=== PATIENT | female | born 1940 | race Caucasian/White ===

== ENCOUNTER → 2016-05-09 | Outpatient (CLI) | payer MEDICARE ==
--- NOTE | 2016-05-09 15:45 | BD ---
EXAMINATION TYPE: MG DEXA axial skeleton. DATE OF EXAM: 05/09/2016 2:15 PM COMPARISON: NONE CLINICAL HISTORY: Height: 60.5 Weight: 145 FRAX RISK QUESTIONS: Alcohol (3 or more units per day): no Family History (Parent hip fracture): no Glucocorticoids (More than 3mos): no (Ex: prednisone, prednisolone, methylprednisolone, dexamethasone, and hydrocortisone). History of Fracture in Adulthood: no Secondary Osteoporosis: 1. Type 1 Diabetes: no 2. Hyperthyroidism: no 3. Menopause before 45: no 4. Malnutrition: no 5. Chronic liver disease: no Rheumatoid Arthritis: no Current Tobacco Use: yes RISK FACTORS HISTORY OF: History of Fracture: no Family History of Osteoporosis: unsure Drink Alcohol: socially, occasionally Active: yes Diet low in dairy products/other sources of calcium: no Postmenopausal woman: yes Take estrogen and/or progesterone medications: no Lost more than 2 inches in height since high school: yes Frequent falls: no Poor Health: no Hyperparathyroidism: no Adrenal Insufficiency: no MEDICATIONS: Prednisone or other steroids: no Thyroid Medications: no Osteoporosis Medications: no Additional Medications: blood pressure meds, fish oil & vitamin EXAM MEASUREMENTS: Bone mineral densitometry was performed using the [employer] System. Bone mineral density as measured about the Lumbar spine is: ----- L1-L4(G/cm2): 1.247 T Score Values are as follows: ----- L2: 0.3 ----- L3: -1.3 ----- L4: 1.2 ----- L1-L4: 0.6 Bone mineral density has: Decreased -4.4% since study of: 10/14/2013 Bone mineral density about the R hip (g/cm2): 0.837 Bone mineral density about the L hip (g/cm2): 0.798 T Score values are as follows: -----R Neck: -1.4 -----L Neck: -1.7 -----R Intertrochanter: -2.4 -----L Intertrochanter: -1.6 Bone mineral density has: Decreased -3.3% since study of: 10/14/2013 IMPRESSION Osteopenia (T Score between -2.5 and -1 as noted by T score values There is slightly increased risk of fracture and the patient may be considered for treatment. Re-Screen 1-2 years. NOTE: T-SCORE=SD OF THE YOUNG ADULT MEAN.
--- NOTE | 2016-05-10 08:12 | MM ---
Reason for exam: screening (asymptomatic). Last mammogram was performed 1 year and 7 months ago. History: Patient is postmenopausal and has history of other cancer at age 70. Family history of breast cancer in paternal cousin. Physical Findings: A clinical breast exam by your physician is recommended on an annual basis and results should be correlated with mammographic findings. MG 3D Screening Mammo W/Cad Bilateral CC and MLO view(s) were taken. Prior study comparison: October 15, 2014, bilateral MG screening mammo w CAD. October 14, 2013, bilateral MG screening mammo w CAD. There are scattered fibroglandular densities. There is no discrete abnormality. No significant changes when compared with prior studies. ASSESSMENT: Negative, BI-RAD 1 RECOMMENDATION: Routine screening mammogram of both breasts in 1 year.
== END | disposition home or self-care (01) ==
LOC: RADMAMWWP 12:55
PROVIDERS: ATTEND Family Medicine
DX: Z12.31 Encounter for screening mammogram for malignant neoplasm of breast (principal); M85.80 Other specified disorders of bone density and structure, unspecified site
CPT/HCPCS: 77080; 77063; G0202

== ENCOUNTER → 2017-09-07 | Outpatient (CLI) | payer MEDICARE ==
--- NOTE | 2017-09-07 12:36 | XR ---
Lumbar spine HISTORY: Chronic back pain 3 views of the lumbar spine The lumbar vertebral bodies show decreased mineralization. There is a marked levoscoliosis centered a t L3. Sclerosis present in the posterior elements is compatible with facet arthropathy. There is loss of disc height at the intervertebral levels. Vacuum phenomenon also present at the intervertebral le vels, there is multilevel spondylosis. There may be some mild loss of vertebral body height at L2, L3 . There are atherosclerotic vascular calcifications present. IMPRESSION: Degenerative disc disease, scoliosis, facet arthropathy.
--- NOTE | 2017-09-10 10:20 | MM ---
Reason for exam: screening (asymptomatic). Last mammogram was performed 1 year and 4 months ago. History: Patient is postmenopausal and has history of other cancer at age 70. Family history of breast cancer in paternal cousin. Physical Findings: A clinical breast exam by your physician is recommended on an annual basis and results should be correlated with mammographic findings. MG 3D Screening Mammo W/Cad Bilateral CC and MLO view(s) were taken. Prior study comparison: May 09, 2016, bilateral MG 3d screening mammo w/cad. October 15, 2014, bilateral MG screening mammo w CAD. The breast tissue is heterogeneously dense. This may lower the sensitivity of mammography. Benign appearing bilateral calcifications. No suspicious abnormality. No significant changes when compared with prior studies. ASSESSMENT: Benign, BI-RAD 2 RECOMMENDATION: Routine screening mammogram of both breasts in 1 year.
== END | disposition home or self-care (01) ==
LOC: RADMAMWWP 09:05
PROVIDERS: ATTEND Family Medicine
DX: Z12.31 Encounter for screening mammogram for malignant neoplasm of breast (principal); M51.16 Intervertebral disc disorders with radiculopathy, lumbar region; M46.96 Unspecified inflammatory spondylopathy, lumbar region; M41.86 Other forms of scoliosis, lumbar region
CPT/HCPCS: 72100; 77063; 77067

== ENCOUNTER → 2018-09-17 | Outpatient (CLI) | payer MEDICARE ==
--- NOTE | 2018-09-17 09:59 | US ---
EXAMINATION TYPE: US thyroid st tissue head/neck DATE OF EXAM: 09/17/2018 COMPARISON: US 09/10/2015 CLINICAL HISTORY: R13.10 Dysphagi. Thyroid nodules GLAND SIZE: Right Lobe: 5.0 x 2.9 x 2.8 cm Overall Parenchyma: heterogenous Left Lobe: 4.8 x 1.4 x 1.3 cm Overall Parenchyma: heterogeneous Isthmus Thickness: 0.7 cm NODULES RIGHT: # of nodules measured on right: 3 1. 3.0 X 3.0 x 2.4 cm hypoechoic solid nodule at the mid pole with well-defined margins; present wi th microcalcifications. This nodule is wider than tall and shows intranodular vascularity. Prior size: 3.0 x 2.9 x 2.3 cm 2. 0.9 X 0.8 x 0.7 cm hypoechoic solid nodule at the mid lateral pole with well-defined margins. Thi s nodule is taller than wide and shows no intranodular vascularity. Prior size #2 was cystic nodule not seen 3. 0.9 X 0.8 x 0.7 cm isoechoic mixed nodule at the upper pole with poorly defined margins; interrup van peripheral calcification. This nodule is wider than tall and shows no intranodular vascularity. Prior size: 0.8 x 0.7 x 0.7 cm LEFT: # of nodules measured on left: 2 largest of multiple 1. 0.8 x 0.7x 0.5 cm hypoechoic mixed nodule at the upper pole with well-defined margins. This nodu le is wider than tall and shows no intranodular vascularity. Prior size: 0.9 x 0.4 x 0.7 cm 2. 0.6 X 0.4 x 0.4 cm hypoechoic, primarilycystic nodule at the lower pole with well-defined margins ; present with microcalcification. This nodule is wide as is tall and shows no intranodular vascular ity. Prior size: 0.7 x 0.3 x 0.7 cm ISTHMUS: # of nodules measured in the isthmus: 2 1. 0.6 X 0.8 x 0.5 cm hypoechoic cystic nodule at the lower pole with well-defined margins. This n odule is wider than tall and shows no intranodular vascularity. no prior simple cyst seen 2. 0.5 X 0.4 x 0.4 cm hypoechoic mixed nodule at the mid pole with well-defined margins. This nodul e is wide as is tall and shows no intranodular vascularity. Prior size: 0.5 x 0.4 x 0.5 cm Bilateral neck scanned: no evidence of lymphadenopathy. IMPRESSION: Continued stability of the dominant right thyroid nodule measuring up to 3.0 cm in an overall multino dular goiter. This nodule was previously biopsied on 04/27/2015. There are 2 new benign-appearing cyst ic nodules.
--- NOTE | 2018-09-17 10:41 | BD ---
EXAMINATION TYPE: Axial Bone Density DATE OF EXAM: 09/17/2018 COMPARISON: 2017 CLINICAL HISTORY: Postmenopausal female. Osteoporosis screening. Height: 61 Weight: 161.0 FRAX RISK QUESTIONS: Alcohol (3 or more units per day): no Family History (Parent hip fracture): no Glucocorticoids (More than 3mos): no (Ex: prednisone, prednisolone, methylprednisolone, dexamethasone, and hydrocortisone). History of Fracture in Adulthood: no Secondary Osteoporosis: 1. Type 1 Diabetes: no 2. Hyperthyroidism: no 3. Menopause before 45: no 4. Malnutrition: no 5. Chronic liver disease: no Rheumatoid Arthritis: yes Current Tobacco Use: no -stopped 8 months ago RISK FACTORS HISTORY OF: Family History of Osteoporosis: no Active: sometimes Diet low in dairy products/other sources of calcium: no Postmenopausal woman: age 53 Lost more than 2 inches in height since high school: yes MEDICATIONS: blood pressure, pain meds as needed, medical marijuana Additional History: EXAM MEASUREMENTS: Bone mineral densitometry was performed using the [employer] System. Bone mineral density as measured about the Lumbar spine is: ----- L1-L4(G/cm2): 1.202 T Score Values are as follows: ----- L2: 0.9 ----- L3: -0.5 ----- L4: -1.4 ----- L1-L4: 0.2 Bone mineral density has: decreased -5.1 % since study of: 05.09.2016 Bone mineral density about the R hip (g/cm2): 0.978 Bone mineral density about the L hip (g/cm2): 0.871 T Score values are as follows: -----R Neck: -0.4 -----L Neck: -1.2 -----R Total: -2.0 -----L Total: -1.4 Bone mineral density has: increased 4.6 % since study of: 05.09.2016 IMPRESSION: Osteopenia (T Score between -2.5 and -1). There is slightly increased risk of fracture and the patient may be considered for treatment. Re-Screen 2-5 years. NOTE: T-SCORE=SD OF THE YOUNG ADULT MEAN.
--- NOTE | 2018-09-18 13:44 | MM ---
Reason for exam: screening (asymptomatic). Last mammogram was performed 1 year ago. History: Patient is postmenopausal and has history of other cancer at age 70. Family history of breast cancer in paternal cousin. Physical Findings: A clinical breast exam by your physician is recommended on an annual basis and results should be correlated with mammographic findings. MG 3D Screening Mammo W/Cad Bilateral CC and MLO view(s) were taken. Prior study comparison: September 07, 2017, bilateral MG 3d screening mammo w/cad. May 09, 2016, bilateral MG 3d screening mammo w/cad. The breast tissue is heterogeneously dense. This may lower the sensitivity of mammography. Finding: There are typically benign calcifications in both breasts. No suspicious abnormality. No significant new finding when compared to prior studies. ASSESSMENT: Benign, BI-RAD 2 RECOMMENDATION: Routine screening mammogram of both breasts in 1 year.
== END | disposition home or self-care (01) ==
LOC: RADMAMWWP 07:49
PROVIDERS: ATTEND Family Medicine
DX: Z12.31 Encounter for screening mammogram for malignant neoplasm of breast (principal); E04.2 Nontoxic multinodular goiter; M85.851 Other specified disorders of bone density and structure, right thigh; M85.852 Other specified disorders of bone density and structure, left thigh; M85.88 Other specified disorders of bone density and structure, other site; Z78.0 Asymptomatic menopausal state
CPT/HCPCS: 76536; 77063; 77067; 77080

== ENCOUNTER → 2018-12-02 | Outpatient (CLI) | payer MEDICARE ==
--- NOTE | 2018-12-02 11:05 | XR ---
EXAMINATION TYPE: XR knee complete bilateral DATE OF EXAM: 12/02/2018 COMPARISON: NONE HISTORY: Pain TECHNIQUE: 3 views are submitted of each knee. FINDINGS: There severe arthropathy of the knee joint bilaterally with hypertrophic spurring. Findings are great er on the left. Arthropathy of the patellofemoral joint and small amount of fluid in the suprapatella r bursa noted bilaterally. Defect involving the articular surface of the lateral femoral condyle on t he right may been the basis of osteochondritis. IMPRESSION: 1. Severe bilateral osteoarthritis. 2. Osteochondritis of the lateral right femoral condyle suggestive. Correlate with MRI.
== END | disposition home or self-care (01) ==
LOC: RADXRYALE 09:46
PROVIDERS: ATTEND Nurse Practitioner Family
DX: M17.0 Bilateral primary osteoarthritis of knee (principal)

== ENCOUNTER → 2018-12-25 | Outpatient (CLI) | payer MEDICARE ==
--- NOTE | 2018-12-25 13:45 | MR ---
EXAMINATION TYPE: MR knee RT wo con DATE OF EXAM: 12/25/2018 COMPARISON: Plain film 12/02/2018 HISTORY: Right knee pain TECHNIQUE: Multiplanar, multisequence imaging of the right knee is performed without IV contrast. FINDINGS: MEDIAL MENISCUS: Abnormal increased intrasubstance signal is present, stellate abnormal signal is pre sent with linear signal extending to the articular surface at the posterior horn level LATERAL MENISCUS: Root anchor of the posterior horn of the lateral meniscus is not seen with certaint y at its expected insertion site consistent with tear CRUCIATE LIGAMENTS: Fibers of the anterior cruciate ligament shows abnormal increased intrasubstance signal, the ligament appears somewhat attenuated and there may be an associated small ganglion cyst p osteriorly COLLATERAL LIGAMENTS: The medial collateral ligament and lateral collateral ligament complex are inta ct and unremarkable. EXTENSOR MECHANISM: Visualized quadriceps and patellar tendons are intact. EFFUSION: Suprapatellar joint effusion is noted. POPLITEAL CYST: Semimembranosus gastrocnemius cyst is present measuring approximately 2 x 1.6 x 4 cm . TRICOMPARTMENT SPACES: Joint space is reduced in the medial lateral compartments. CARTILAGE: Subchondral focus of increased signal in the lateral femoral condyle measures approximatel y 1 cm in greatest dimension, overlying cartilage thought to show some minimal associated abnormal si gnal. 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 BONE MARROW SIGNAL: There is likely reactive marrow signal change involving the lateral femoral condy le and lesser extent proximal aspect of the tibia posteriorly OTHER: Tricompartmental marginal spurring is present. IMPRESSION: Osteoarthritis. Focal subchondral defect correlate with plain film in the lateral femoral condyle and is compatible with fracture, possible osteochondral fracture. There is reactive marrow signal change . Tear of the posterior horn of the lateral meniscus is suspected as described as well as posterior h orn of the medial meniscus. Joint effusion and Wilson's cyst.
== END | disposition home or self-care (01) ==
LOC: RADMRIMAIN 09:41
PROVIDERS: ATTEND Nurse Practitioner Family
DX: M17.11 Unilateral primary osteoarthritis, right knee (principal); M71.21 Synovial cyst of popliteal space [Baker], right knee; M93.261 Osteochondritis dissecans, right knee

== ENCOUNTER → 2019-09-15 | Outpatient (CLI) | payer MEDICARE ==
[2019-09-15 10:29] LABS: HCT 37.9 % (34.0-46.0); HGB 12.2 gm/dL (11.4-16.0); MCHC 32.1 g/dL (31.0-37.0); MCV 93.3 fL (80.0-100.0); Mean Platelet Volume 9.3; Platelet Count 234 k/uL (150-450); RBC 4.06 m/uL (3.80-5.40); RDW 13.6 % (11.5-15.5); WBC 7.5 k/uL (3.8-10.6)
[2019-09-15 10:42] LABS: INR 0.9 (<1.2); Partial Thromboplastin Time 22.5 sec (22.0-30.0); Prothrombin Time 9.6 sec (9.0-12.0)
[2019-09-15 10:43] LABS: Appearance,Urine Cloudy (Clear); Bacteria,Urine Many /hpf; Bilirubin,Urine Negative (Negative); Blood,Urine Negative (Negative); Color,Urine Light Yellow; Glucose,Urine (UA) Negative (Negative); Ketones,Urine Negative (Negative); Leukocyte Esterase,Urine Negative (Negative); Mucus,Urine Rare /hpf; Nitrite,Urine Negative (Negative); PH, Urine 6.5 (5.0-8.0); Protein,Urine Negative (Negative); RBC,Urine 1 /hpf (0-5); Specific Gravity,Urine 1.009 (1.001-1.035); Squamous Epithelial Cell,Urine 3 /hpf (0-4); Urobilinogen,Urine <2.0 mg/dL (<2.0); WBC,Urine 1 /hpf (0-5)
[2019-09-15 11:39] LABS: Albumin 4.4 g/dL (3.5-5.0); Calcium 9.6 mg/dL (8.4-10.2); Potassium 4.5 mmol/L (3.5-5.1); Total Bilirubin 0.4 mg/dL (0.2-1.3); Total Protein 7.3 g/dL (6.3-8.2)
== END | disposition home or self-care (01) ==
LOC: LABPAT 09:02
PROVIDERS: ATTEND Orthopaedic Surgery Sports Medicine
DX: Z01.818 Encounter for other preprocedural examination (principal); Z79.01 Long term (current) use of anticoagulants
CPT/HCPCS: 80053; 81001; 85027; 85610; 85730; 87070; 93005

== ENCOUNTER 2019-09-24 11:07 | Day surgery (SDC) | payer MEDICARE ==
[2019-09-22 15:15] VITALS: BMI 30.2
[~2019-09-24 11:07] MED LIST: ACETAMINOPHEN TAB 500 MG TAB PO ONE; GABAPENTIN 300 MG CAP PO ONE; MELOXICAM 7.5 MG TAB PO ONE; ONDANSETRON 4 MG/2 ML VIAL IVP ONE; ROPIVACAINE 246.25 MG, EPINEPHrine 0.5 MG, KETOROLAC 30 MG, cloNIDine HCL/PF 80 MCG, WA... MISCELLANE ONE
[2019-09-24 11:46] VITALS: RESP 16
[2019-09-24] MEDS ORDERED: LACTATED RINGERS 1,000 ML IV ONE ×2 (11:55→14:06)
[2019-09-24] MEDS ORDERED: MIDAZOLAM 2 MG/2 ML VIAL IVP ONE (12:09)
[2019-09-24] MEDS ORDERED: fentaNYL (PF) 50 MCG/ML 2 ML AMP IVP ONE (12:09)
[2019-09-24] MEDS ORDERED: NEOSTIGMINE 1 MG/ML 10 ML VIAL ONE (12:40)
[2019-09-24] MEDS ORDERED: PHENYLEPHRINE-0.9% NACL SYG 1 MG/10 ML SYRINGE ONE (12:40)
[2019-09-24] MEDS ORDERED: PROPOFOL 10 MG/ML 20 ML VIAL IV ONE (12:40)
[2019-09-24] MEDS ORDERED: GLYCOPYRROLATE 0.2 MG/ML 2 ML VIAL ONE (12:40)
[2019-09-24] MEDS ORDERED: MIDAZOLAM 2 MG/2 ML VIAL ONE (12:40)
[2019-09-24] MEDS ORDERED: fentaNYL (PF) 50 MCG/ML 2 ML AMP ONE (12:40)
[2019-09-24] MEDS ORDERED: ROCURONIUM BROMIDE 10 MG/ML 5 ML VIAL IV ONE (12:40)
[2019-09-24] MEDS ORDERED: LIDOCAINE 1% INJ 10MG/ML (20 ML MDV) ONE (12:40)
[2019-09-24] MEDS ORDERED: SUCCINYLCHOLINE CHLORIDE 100 MG/5 ML SYR IV ONE (12:40)
[2019-09-24] MEDS ORDERED: MAGNESIUM HYDROXIDE 2,400 MG/10 ML CUP PO PRN (12:45)
[2019-09-24] MEDS ORDERED: NALOXONE 0.4 MG/ML 1 ML VIAL IV PRN (12:45)
[2019-09-24] MEDS ORDERED: NA PHOS,M-B/NA PHOS,DI-BA 133 ML ENEMA RECTAL PRN (12:45)
[2019-09-24] MEDS ORDERED: DIAZEPAM 5 MG TAB PO PRN (12:45)
[2019-09-24] MEDS ORDERED: BISACODYL 10 MG SUPP RECTAL PRN (12:45)
[2019-09-24] MEDS ORDERED: hydrOXYzine PAMOATE 25 MG CAP PO PRN (12:45)
[2019-09-24] MEDS ORDERED: ACETAMINOPHEN TAB 325 MG TAB PO PRN (12:45)
[2019-09-24] MEDS ORDERED: traMADol 50 MG TAB PO PRN (12:45)
[2019-09-24] MEDS ORDERED: HYDROmorphone 0.5 MG/0.5 ML SYRINGE IVP PRN ×3 (12:45)
[2019-09-24] MEDS ORDERED: TEMAZEPAM 15 MG CAP PO PRN (12:45)
[2019-09-24] MEDS ORDERED: ONDANSETRON 4 MG/2 ML VIAL IVP PRN (12:45)
[2019-09-24] MEDS ORDERED: HYDROcodone/APAP 5-325MG 1 EACH TAB PO PRN (12:45)
[2019-09-24] MEDS ORDERED: ceFAZolin 3,000 MG in SODIUM CHLORIDE 0.9% IRRIGATIO 3,000 ML IRRIGATION ONE (13:21)
--- NOTE | 2019-09-24 13:43 | P.ANPRN ---
Procedure Note - Anesthesia - Nerve Block Performed Left Adductor Canal Infusion Time Out Performed: Yes ([id number]) Date of Procedure: 09/24/19 Procedure Start Time: 12:12 Procedure Stop Time: 12:16 Location of Patient: PreOp Indication: Acute Post-Operative Pain, Requested by Surgeon (trevor) Specifically requested for management of pain by Dr.: Callum Collins Sedation Type: Sedate with meaningful contact maintained Preparation: Sterile Prep Position: Supine Catheter Depth at Skin (cm): 8 Catheter: Indwelling Needle Types: Pajunk Needle Gauge: 20 Ultrasound used to visualize needle placement: Yes Ultrasound used to observe medication spread: Yes Injectate: 0.5% Ropivacaine (see comment for volume) (20cc) Blood Aspirated: No Pain Paresthesia on Injection Noted: No Resistance on Injection: Normal Image Stored and Saved: Yes Events: Uneventful and Well Tolerated
[2019-09-24] MEDS ORDERED: ROPIVACAINE 0.2%-NS ON-Q PUMP 1,090 MG, EMPTY PAIN BALL 1 EACH MISCELLANE PRN (14:35)
--- NOTE | 2019-09-24 15:16 | XR ---
EXAMINATION TYPE: XR knee limited LT DATE OF EXAM: 09/24/2019 COMPARISON: NONE HISTORY: 78-year-old female evaluation for postoperative abnormality and alignment TECHNIQUE: 2 views FINDINGS: Images show placement of left total knee arthroplasty. Both distal femoral and proximal tibial compon ents of the prosthesis are well seated without periprosthetic fracture. Alignment grossly anatomic. T here is soft tissue air as well as intra-articular air related to recent operation. IMPRESSION: Uncomplicated postoperative appearance left total knee arthroplasty.
[2019-09-24] MEDS: TRANEXAMIC ACID 1,000 MG in SODIUM CHLORIDE 0.9% 100 ML IVPB SCH (16:39)
--- NOTE | 2019-09-24 18:32 | OP ---
OPERATIVE REPORT DATE OF PROCEDURE: 09/24/2019 SURGEON: Callum Collins M.D. DIESEL FLEET MECHANIC: Francisco Nieves PA-C. PREOPERATIVE DIAGNOSIS: Left knee osteoarthrosis. POSTOPERATIVE DIAGNOSIS: Left knee osteoarthrosis. OPERATION: Left total knee arthroplasty. ANESTHESIA: General endotracheal. ESTIMATED BLOOD LOSS: 100 mL. TOURNIQUET TIME: Tourniquet time was 39 minutes at 250 mmHg. COMPLICATIONS: None apparent. DRAINS: None. DISPOSITION: Post-Anesthesia Care Unit. INDICATIONS: Carolina is a very pleasant 78-year-old female with a longstanding history of left knee pain. History and physical examination are consistent with advanced left knee osteoarthrosis. She has been through significant nonoperative management up to this point. Further treatment options were discussed and she has decided to go forward with left total knee arthroplasty. The risks of procedure were discussed with her in detail. These risks include but are not limited to risk of infection, nerve damage, bleeding, pain, and a small risk of deep vein thrombosis which could lead to fatal pulmonary embolism. There is also risk of loosening of the implant which could require revision operation. The patient understands these risks. All of her questions were answered to her satisfaction. Appropriate informed consent was obtained. DESCRIPTION OF THE PROCEDURE: The patient was identified in the preoperative holding area. Surgical site was marked by both the patient and myself. She was given 2 grams of Ancef IV for prophylactic purposes. She was then transported to the operative suite. She was placed supine on the operating room table. A spinal anesthetic was then administered and dosed per the anesthesia department without apparent complication. Examination under anesthesia was then performed. The patient was 2 to 3 degrees shy of full extension. She had 100 degrees of flexion, and the medial collateral ligament, lateral collateral ligament and posterior cruciate ligaments were stable. Tourniquet was then placed high on the left upper thigh, well padded in preparation for surgery. The patient's left lower extremity was then prepped and draped in the usual sterile fashion. A standard surgical pause was then undertaken to ensure that we were operating on the correct site and that appropriate preoperative antibiotics had been given. All staff in the room were in agreement and we proceeded. The outlines of the patella were marked with a surgical pen. A planned 12 cm vertical incision centered over the patella was marked with a surgical pen. The leg was then exsanguinated with an Esmarch dressing. The knee was then flexed and the tourniquet was inflated to 250 mmHg. The total tourniquet time for the procedure was 39 minutes. Incision was then made with a 10-blade scalpel. Dissection was carried down sharply to the overlying fascia. Great care was taken to minimize the skin flaps. The knee was then exposed using a standard medial parapatellar approach. A small cuff of quadriceps tendon was then left for suturing. She was in a bit of varus preoperatively. A standard medial release was then made. The superficial medial collateral ligament was dissected off of the bone and around to the posterior aspect of the proximal tibia. The medial meniscus was then excised as well. The lateral meniscus was also released anteriorly. The leg was then externally rotated. The patella was everted. The knee was flexed. The retractors were then placed to protect the collateral ligaments. I then proceeded to remove the infrapatellar fat pad. This was excised sharply tangentially with the fibers of the patellar tendon. I then proceeded to remove the peripheral osteophytes. This was done with a rongeur. I then proceeded with the distal femoral resection. She did have near-full extension. A planned 9 mm resection was then done. The femoral canal was then entered in the midline of the femur approximately 10 mm anterior to the origin of the posterior cruciate ligament. The augustus was then advanced down to the center of the femur and placed intramedullary. Based on the preoperative radiographs, the angle between the anatomic and mechanical axis of the femur was approximately 4-5 degrees. The valgus angle of the distal femoral cutting guide was then set at 4 degrees for the left knee. The distal femoral cutting guide was then advanced over the intramedullary augustus. This was seated firmly against the femur. I then, as mentioned, planned to take 9 mm off the distal femur. The cutting block was then secured onto the femur with pins. The jig was then removed and the distal femoral cut was made through the slot of the block. The pins were then removed and the distal femoral cutting block was removed. The accuracy of the distal femoral cuts was checked with 2 flat bars. I then proceeded with femoral sizing. The posterior referencing sizing guide was held firmly against the resected distal surface of the femur. The posterior condyles were resting on the posterior plane of the guide. The sizing stylus was then placed onto the anterior femur. The size was measured as a size 7. I then assessed for femoral rotation. The plan was for 3 degrees of external rotation. Three degrees of external rotation was placed onto the jig. These holes were then marked. I then confirmed the rotation by 3 separate methods. This was done using the epicondylar axis as well as Whitesides line and posterior referencing. It was deemed that the external rotation was proper. I then went forward with placing the femoral cutting block. This was placed over the previously placed pin holes. The Thor wing was then placed onto the anterior slots to ensure that we would not notch the anterior femur with the anterior femoral cut. I then proceeded with the anterior femoral cut. This was flush with the anterior cortex of the femur. The posterior cuts were then made followed by the anterior chamfer cut, and then the posterior chamfer cut. The cutting block was then removed. Throughout the resection, the collateral ligaments were protected with retractors. I then placed a trial size 7 femur. It was slightly wide medial to lateral, but the narrow fit very nicely and it fit flush with the distal end of the femur. The drill holes were then made. I then proceeded with the tibial cut. I planned for a cruciate-retaining knee. The guide was placed and set for varus, valgus and for slope. The height was set for an approximate 2 mm resection from the medial tibial plateau, which was the lower side. I was happy with the alignment and the amount of resection. The cutting block was then pinned to the proximal tibia. The alignment augustus was removed and the proximal tibia was resected with a reciprocating saw. Again this was done with retractors protecting the collateral ligaments as well as the posterior cruciate ligament. I then proceeded to evaluate the flexion and extension gaps. A 10 mm block was then placed. The flexion and extension gaps were equal. I then proceeded with resection of the posterior osteophytes. She had very minimal posterior osteophytes. This was done using a curved osteotome. This resected the posterior osteophytes, and posterior capsule stripping was done off the posterior aspect of the femur at this time. The osteophytes were then removed. I then proceeded with resection of the patella. The thickness of the patella was measured using the caliper. The thickness was 24 mm. The thickness of the anticipated patellar dome was taken into account. Resection was then performed and confirmed to be equal in 4 quadrants using a caliper. Approximately 14 mm of bone remained after the resection. A 29 x 8 standard patellar trial was then placed. The holes were drilled and the trial was then placed. I then proceeded with sizing the tibial plate. A size E tibial plate fit very nicely. I then placed the trial femur and the tibial tray and the patellar button. A 10 mm trial tibial insert was also placed. The components fit very nicely. She had full extension and flexion. The extension and flexion gaps were equal and stable to both varus and valgus stress. The patella tracked appropriately. The tibial tray rotation was then marked with a Bovie. This was externally rotated properly. I then proceeded with tibial preparation. I first drilled the femoral holes and removed the femoral component. The tibial tray was then set for proper external rotation as well as mediolateral placement onto the tibia. It was then pinned into place. I then proceeded with punching the keel. I then decided to proceed with cementing of all of our components. The knee was thoroughly irrigated with sterile saline solution via pulse lavage. The lateral geniculate artery was identified and cauterized. All blood was removed from the bone of the tibia, femur and patella with pulse lavage. I then proceeded with cementing. Two packs of antibiotic bone cement were prepared on the back table by the surgical specialist. I then proceeded with cementing the tibia first. The cement was impacted into the keel as well as deeply seated into the bone. A second coat of cement was then placed. The tibia was then impacted into place. Excess cement was removed with Janel's and jokers. I then proceeded with cementing of the femoral component. The femoral component was also cemented using standard technique. Excess cement was removed. A 10 mm trial insert was then placed into the knee. It was brought into full extension with a constant axial load placed until the cement had hardened. The patellar component was then cemented. This was held firmly with a compressive device until the cement had dried. When the cement had dried, the knee was taken out of extension. All excess cement was removed from around the prosthesis. I then trialed the knee with a 10 mm insert. The flexion and extension gaps were appropriate. The knee was stable. It came into full extension. I decided to go forward with a 10 mm cross-linked cruciate-retaining tibial insert. Polyethylene was then placed onto the tibial tray and locked into place. The knee was then reduced. The knee was again further irrigated with sterile saline solution with antibiotic added. The tourniquet was then deflated. The total tourniquet time for the procedure was 39 minutes at 250 mmHg. The final components were a [employer] Persona size 7 narrow cruciate-retaining femoral component, a size E tibial tray, a 10 mm medial- congruent cruciate-retaining polyethylene insert, and a 29 x 8 mm patella. I then proceeded with closure. Again the knee was thoroughly irrigated. The quadriceps tendon and the medial retinaculum were reapproximated with #2 Ethibond suture. The extensor mechanism was then closed with a running #2 Quill suture. Subcutaneous tissues were closed with 2-0 Vicryl interrupted suture. The skin was closed with a running 3-0 Quill suture. Dermabond was applied to the incision. All sponge and needle counts were deemed correct prior to closure. A sterile compressive dressing was applied. The patient tolerated the procedure without apparent complication. She was transferred to the recovery room in stable condition. MMODL / IJN: [id number] /
[2019-09-24] MEDS ORDERED: SENNOSIDES-DOCUSATE SODIUM 1 EACH TAB PO SCH (21:00)
--- NOTE | 2019-09-24 21:32 | P.CONS ---
History of Present Illness - Reason for Consult Consult date: 09/24/19 Medical management - Chief Complaint Elective left total knee arthroplasty. - History of Present Illness Patient is a 78-year-old female with a known history of hypertension, history of skin cancer and osteoarthritis was admitted to hospital for elective left total knee arthroplasty. Patient tolerated the procedure very well. Currently on nerve block and denied any complaints of left knee or hip pain. Denied any chest pain or shortness of breath. No nausea vomiting or abdominal pain or diarrhea. No headache or dizziness or lightheadedness. No fever no chills. Review of Systems Constitutional: Patient denies any fever or chills . No generalized weakness or weight loss. Abdomen: Patient denied nausea vomiting and diarrhea and abdominal pain. Cardiovascular: Patient denies any chest pain or short of breath no palpitations. Respiratory: patient denied any cough is from production. No shortness of breath Neurologic: Patient denied any numbness or tingling headache. Musculoskeletal: Patient denies any complaints of joint swelling or deformity. Skin: Negative Psychiatric: Negative Endocrine: No heat or cold intolerance. No recent weight gain. Genitourinary: No dysuria or hematuria. All other 14 point ROS negative except the above Past Medical History Past Medical History: Cancer, Hypertension, Osteoarthritis (OA) Additional Past Medical History / Comment(s): Skin cancer - nose - removed History of Any Multi-Drug Resistant Organisms: None Reported Past Surgical History: Adenoidectomy, Hysterectomy, Tonsillectomy Additional Past Surgical History / Comment(s): hysterectomy 2013 Past Anesthesia/Blood Transfusion Reactions: Postoperative Nausea & Vomiting (PONV) Past Psychological History: No Psychological Hx Reported Smoking Status: Never smoker Past Alcohol Use History: Occasional Additional Past Alcohol Use History / Comment(s): quit smoking 2017, smoked 1 pack/week from age 34 Past Drug Use History: None Reported Additional Drug Use History / Comment(s): uses cbd cream occasionally - Past Family History Daughter(s) Family Medical History: Cancer Additional Family Medical History / Comment(s): brain tumour Sister(s) Family Medical History: Cancer Additional Family Medical History / Comment(s): lung x2 sisters Medications and Allergies Home Medications Medication Instructions Recorded Confirmed Type Multivitamins, Thera [Theragran] 1 each PO DAILY 04/19/15 09/22/19 History Acetaminophen Tab [Tylenol] 650 mg PO Q4H PRN 09/22/19 09/24/19 History Losartan/Hydrochlorothiazide 1 tab PO QAM 09/22/19 09/24/19 History [Losartan-Hctz 100-25 mg Tab] RX: traMADol HCL 50 mg PO BID PRN 09/22/19 09/24/19 History Allergies Allergy/AdvReac Type Severity Reaction Status Date / Time No Known Allergies Allergy Verified 09/24/19 11:30 Physical Exam Vitals: Vital Signs Temp Pulse Pulse Resp BP Pulse Ox 09/24/19 16:01 97.4 F L 64 16 121/75 94 L 09/24/19 15:16 61 16 133/63 100 09/24/19 15:01 64 16 142/62 100 09/24/19 14:46 73 16 142/63 99 09/24/19 14:31 97.5 F L 82 16 130/62 96 09/24/19 11:42 98.0 F 96 16 147/70 95 Intake and Output 09/24/19 09/24/19 09/24/19 06:59 14:59 22:59 Intake Total 1251 50 Output Total 100 Balance 1151 50 Intake: IV 1251 50 Output: Estimated Blood Loss 100 Other: Weight 72 kg 72 kg PHYSICAL EXAMINATION: Patient is lying in the bed comfortably, no acute distress, awake alert and oriented.. HEENT: Normocephalic. Neck is supple. Pupils reactive. Nostrils clear. Oral cavity is moist. Ears reveal no drainage. Neck reveals no JVD, carotid bruits, or thyromegaly. CHEST EXAMINATION: Trachea is central. Symmetrical expansion. Lung booth clear to auscultation and percussion. CARDIAC: Normal S1, S2 with no gallops. No murmurs ABDOMEN: Soft. Bowel sounds normal. No organomegaly. No abdominal bruits. Extremities: reveal no edema. No clubbing or cyanosis. Neurologically awake, alert, oriented x3 with well-coordinated movements. No focal deficits noted Skin: No rash or skin lesions. Psychiatric: Coperative. Nonsuicidal Musculoskeletal: No joint swelling or deformity. Left knee surgical site intact. No swelling. Decreased range of motion. Assessment and Plan Assessment: Status post left total knee arthroplasty. POD #0 Osteoarthritis of multiple joints Hypertension controlled History of skin cancer removed History of appendectomy, hysterectomy and tonsillectomy Previous history of smoking DVT prophylaxis Plan: Patient will be continued on current pain medications and bowel regimen. Continue with DVT prophylaxis. Encourage incentive spirometry and ambulation. Patient will be continued on losartan and hold hydrochlorothiazide which can be started once the patient is getting discharged. We will follow-up closely and monitor H&H. Further recommendations based on the clinical course. Thank you for your consult.
[2019-09-24] MEDS: ASPIRIN 81 MG PO SCH (21:41)
[2019-09-24] MEDS: LACTATED RINGERS 1,000 ML IV SCH (21:42)
[2019-09-25] MEDS: HYDROcodone/APAP 10-325MG 1 EACH TAB PO PRN ×2 (01:38→08:16)
[2019-09-25 03:04] VITALS: PULSE 67
[2019-09-25] MEDS: LACTATED RINGERS 1,000 ML IV SCH (05:12)
[2019-09-25 07:17] LABS: Basophils % (A) 1 %; Eosinophils # (A) 0.4 k/uL (0-0.7); Eosinophils % (A) 4 %; HCT 31.6 % (34.0-46.0); HGB 10.4 gm/dL (11.4-16.0); Lymphocytes # (A) 0.9 k/uL (1.0-4.8); Lymphocytes % (A) 10 %; MCH 31.2 pg (25.0-35.0); MCV 94.5 fL (80.0-100.0); Monocytes # (A) 0.6 k/uL (0-1.0); Monocytes % (A) 7 %; Neutrophils # (A) 6.8 k/uL (1.3-7.7); Neutrophils % (A) 77 %; Platelet Count 179 k/uL (150-450); RBC 3.34 m/uL (3.80-5.40); RDW 13.5 % (11.5-15.5); WBC 8.8 k/uL (3.8-10.6)
[2019-09-25] MEDS: ASPIRIN 81 MG PO SCH (08:16)
[2019-09-25 08:18] VITALS: BP 110/70; TEMP 98.3
[2019-09-25] MEDS ORDERED: LOSARTAN 50 MG TAB PO SCH (09:00)
--- NOTE | 2019-09-25 09:10 | P.PN ---
Progress Note - Text Progress Note Date: 09/25/19 (537) Anesthesiology Patient seen in follow-up for left adductor canal catheter. Currently pain for out of 10tolerable. No numbness tingling around her lips ringing in ears. No associated paresthesias. Catheter site appears intact. Patient is currently happy with her level of pain control. Plan maintain catheter
--- NOTE | 2019-09-25 10:18 | P.DS ---
Providers Expected date of discharge: 09/25/19 Attending physician: Callum Collins Consults: 09/24/19 12:45 Consult Physician Routine Consulting Provider: Serina Yoon Consult Reason/Comments: post op medical management Do you want consulting provider notified?: Yes Primary care physician: Lena Pinto - Discharge Diagnosis(es) (1) S/P total knee arthroplasty Patient was admitted to the OR on 09/24/2019 to undergo a left total knee arthroplasty. She had failed conservative measures as an outpatient and desired to proceed with elective surgery after given informed consent. She underwent the above procedure which she tolerated well without complication. Postoperative hospital course has remained without complication. On day of discharge she is afebrile, vital signs stable, labs within acceptable ranges, tolerating by mouth meds and diet, voiding without difficulty, positive flatus, denies abdominal pain or calf pain, pain is controlled on oral pain medication and has no new complaints. Wound is benign, neurovascular status is intact, calf is soft and nontender, abdomen soft and nontender. Review of systems is negative for numbness, tingling, fever, chills, chest pain, shortness of breath, nausea, vomiting, dizziness, headaches, slurred speech or other Current Visit: Yes Status: Acute Priority: Medium Procedures: LTKA Patient Condition at Discharge: Good Plan - Discharge Summary Discharge Rx Participant: No New Discharge Prescriptions: New Aspirin [Adult Low Dose Aspirin EC] 81 mg PO BID #60 tablet. HYDROcodone/APAP 7.5-325MG [[place] 7.5-325] 1 - 2 each PO Q6HR PRN #56 tab PRN Reason: Pain No Action Multivitamins, Thera [Theragran] 1 each PO DAILY Acetaminophen Tab [Tylenol] 650 mg PO Q4H PRN PRN Reason: Pain traMADol HCL 50 mg PO BID PRN PRN Reason: Pain Losartan/Hydrochlorothiazide [Losartan-Hctz 100-25 mg Tab] 1 tab PO QAM Discharge Medication List Multivitamins, Thera [Theragran] 1 each PO DAILY 04/19/15 [History] Acetaminophen Tab [Tylenol] 650 mg PO Q4H PRN 09/22/19 [History] Losartan/Hydrochlorothiazide [Losartan-Hctz 100-25 mg Tab] 1 tab PO QAM 09/22/19 [History] traMADol HCL 50 mg PO BID PRN 09/22/19 [History] Aspirin [Adult Low Dose Aspirin EC] 81 mg PO BID #60 tablet. 09/25/19 [Rx] HYDROcodone/APAP 7.5-325MG [[place] 7.5-325] 1 - 2 each PO Q6HR PRN #56 tab 09/25/19 [Rx] Follow up Appointment(s)/Referral(s): [facility], [NON-STAFF] - 1 Week Callum Collins MD [STAFF PHYSICIAN] - 10 Days Activity/Diet/Wound Care/Special Instructions: Keep wound clean and dry Take meds as directed Follow-up with Dr. Collins in office Weight bear as tolerated May shower in 3 days if no bleeding Discharge Disposition: HOME WITH HOME HEALTH SERVICES
[2019-09-25] MEDS ORDERED: MULTIVITAMINS, THERA 1 EACH TAB PO SCH (12:00)
== END 2019-09-25 14:03 | disposition home health service (06) ==
LOC: OR 11:07 → 4SSUR 14:29 → OR 09-25 14:03
PROVIDERS: ATTEND Orthopaedic Surgery Sports Medicine
DX: M17.0 Bilateral primary osteoarthritis of knee (principal); I10 Essential (primary) hypertension; E78.5 Hyperlipidemia, unspecified; Z79.899 Other long term (current) drug therapy; Z87.891 Personal history of nicotine dependence; Z85.828 Personal history of other malignant neoplasm of skin; Z97.3 Presence of spectacles and contact lenses; Z90.710 Acquired absence of both cervix and uterus; Z90.89 Acquired absence of other organs; Z90.49 Acquired absence of other specified parts of digestive tract; Z80.8 Family history of malignant neoplasm of other organs or systems; Z82.49 Family history of ischemic heart disease and other diseases of the circulatory system; Z80.1 Family history of malignant neoplasm of trachea, bronchus and lung
CPT/HCPCS: 97110; 97161; 97166; 64448; 76942; 85025; 88300; 73560; 27447; C1776; C1713; J2250; J0171; J2710; J0690 ×3; J2405; J2001; J3010; J1885; J2795 ×2; J2370; J0330; J2704; J0735

== ENCOUNTER → 2020-03-24 | Outpatient (CLI) | payer MEDICARE ==
--- NOTE | 2020-03-25 08:10 | MM ---
Reason for exam: screening (asymptomatic). Last mammogram was performed 1 year and 6 months ago. History: Patient is postmenopausal and has history of other cancer at age 70. Family history of breast cancer in paternal cousin. Physical Findings: A clinical breast exam by your physician is recommended on an annual basis and results should be correlated with mammographic findings. MG 3D Screening Mammo W/Cad Bilateral CC and MLO view(s) were taken. Prior study comparison: September 17, 2018, bilateral MG 3d screening mammo w/cad. September 07, 2017, bilateral MG 3d screening mammo w/cad. There are benign appearing round calcifications in the left breast. There is chronic nodularity in the left breast. There is no discrete abnormality. ASSESSMENT: Benign, BI-RAD 2 RECOMMENDATION: Routine screening mammogram of both breasts in 1 year.
== END | disposition home or self-care (01) ==
LOC: RADMAMWWP 11:38
PROVIDERS: ATTEND Family Medicine
DX: Z12.31 Encounter for screening mammogram for malignant neoplasm of breast (principal); N64.4 Mastodynia
CPT/HCPCS: 77063; 77067

== ENCOUNTER → 2020-08-13 | Outpatient (CLI) | payer MEDICARE ==
--- NOTE | 2020-08-14 04:50 | US ---
EXAMINATION TYPE: US thyroid st tissue head/neck DATE OF EXAM: 08/13/2020 COMPARISON: 09/17/2018 CLINICAL HISTORY: E04.2 NONTOXIC MULTINODULAR GOITER. thyroid noules GLAND SIZE: Right Lobe: 5.3 x 2.5 x cm Overall Parenchyma: heterogenous Left Lobe: 4.8 x 1.3 x 1.4 cm Overall Parenchyma: heterogeneous Isthmus Thickness: 3 cm NODULES RIGHT: # of nodules measured on right: 2 1. 3.1 X 2.2 x 3.0 cm, mid medial, solid or almost completely solid, hypoechoic nodule, which is wi bill than tall, with smooth margins, without echogenic foci. Prior size: 3.0 x 3.0 x 2.4 cm 2. 1.4 X .9 x 1.0 cm, upper lateral, solid or almost completely solid, isoechoic nodule, which is w ider than tall, with ill-defined margins, without echogenic foci. Prior size: .9 x .8 x .7 cm LEFT: # of nodules measured on left: Multple subcentimeter nudules measured solid one. 1. .8 X .4 x .8 cm, upper lateral, solid or almost completely solid, hypoechoic nodule, which is wi bill than tall, with smooth margins, without echogenic foci. Prior size: .8 x .5 x .7 cm ISTHMUS: # of nodules measured in the isthmus: 1 1. 1.0 X .6 x .9 cm cystic or almost completely cystic, anechoic nodule, which is wider than tall, with smooth margins, without echogenic foci. Prior size: .6 x .5 x .8 cm Bilateral neck scanned, no evidence of lymphadenopathy. IMPRESSION: Multiple sonographic findings not significantly different than previous exam 2 years ago and suggesti ve of multinodular goiter. I have low suspicion of malignancy. There is dominant nodule on the right side without change. 2017 ACR TI-RADS LEVEL: 2. Not suspicious. *Highest TI-RADS level nodule reported
== END | disposition home or self-care (01) ==
LOC: RADUSWWP 14:03
PROVIDERS: ATTEND Family Medicine
DX: E04.2 Nontoxic multinodular goiter (principal)
CPT/HCPCS: 76536

== ENCOUNTER → 2021-02-22 | Outpatient (CLI) | payer MEDICARE ==
[2021-02-22 12:28] LABS: HCT 35.9 % (34.0-46.0); HGB 11.5 gm/dL (11.4-16.0); MCH 28.5 pg (25.0-35.0); MCV 89.1 fL (80.0-100.0); Mean Platelet Volume 10.3; Platelet Count 282 k/uL (150-450); RBC 4.03 m/uL (3.80-5.40); RDW 14.5 % (11.5-15.5); WBC 8.7 k/uL (3.8-10.6)
[2021-02-22 12:42] LABS: Albumin 4.5 g/dL (3.5-5.0); Calcium 10.1 mg/dL (8.4-10.2); Potassium 4.2 mmol/L (3.5-5.1); Total Bilirubin 0.4 mg/dL (0.2-1.3); Total Protein 7.4 g/dL (6.3-8.2)
[2021-02-22 12:59] LABS: INR 0.9 (<1.2); Partial Thromboplastin Time 22.4 sec (22.0-30.0); Prothrombin Time 10.1 sec (9.0-12.0)
[2021-02-22 13:28] LABS: Appearance,Urine Clear (Clear); Bilirubin,Urine Negative (Negative); Blood,Urine Negative (Negative); Color,Urine Light Yellow; Glucose,Urine (UA) Negative (Negative); Ketones,Urine Negative (Negative); Leukocyte Esterase,Urine Negative (Negative); Nitrite,Urine Negative (Negative); PH, Urine 6.5 (5.0-8.0); Protein,Urine Negative (Negative); Specific Gravity,Urine 1.009 (1.001-1.035); Urobilinogen,Urine <2.0 mg/dL (<2.0)
== END | disposition home or self-care (01) ==
LOC: LABPAT 11:38
PROVIDERS: ATTEND Orthopaedic Surgery Sports Medicine
DX: Z01.812 Encounter for preprocedural laboratory examination (principal)
CPT/HCPCS: 36415; 80053; 81003; 85027; 85610; 85730; 87070; 93005

== ENCOUNTER 2021-03-10 06:21 | Day surgery (SDC) | payer MEDICARE ==
[2021-03-07 11:18] VITALS: BMI 28.1
[~2021-03-10 06:21] MED LIST changes: -ACETAMINOPHEN TAB 500 MG TAB PO ONE; -GABAPENTIN 300 MG CAP PO ONE; +LIDOCAINE 1% (10MG/ML) FOR IV START INTRADERMA PRN; -MELOXICAM 7.5 MG TAB PO ONE; -ROPIVACAINE 246.25 MG, EPINEPHrine 0.5 MG, KETOROLAC 30 MG, cloNIDine HCL/PF 80 MCG, WA... MISCELLANE ONE
[2021-03-10] MEDS ORDERED: HYDROmorphone 0.5 MG/0.5 ML SYRINGE IVP PRN ×3 (07:00→10:05)
[2021-03-10] MEDS ORDERED: DEXAMETHASONE SOD PHOSPHATE 4 MG/ML 1 ML VIAL IVP ONE (07:10)
[2021-03-10] MEDS: LACTATED RINGERS 1,000 ML IV SCH ×2 (07:10→14:05)
[2021-03-10] MEDS ORDERED: ACETAMINOPHEN TAB 500 MG TAB PO STA (07:22)
[2021-03-10] MEDS ORDERED: GABAPENTIN 300 MG CAP PO STA (07:23)
[2021-03-10] MEDS ORDERED: MIDAZOLAM 2 MG/2 ML VIAL IV ONE (07:25)
[2021-03-10] MEDS ORDERED: TRANEXAMIC ACID 1,000 MG in SODIUM CHLORIDE 0.9% 100 ML IVPB PRN (07:26)
[2021-03-10] MEDS: MELOXICAM 7.5 MG TAB PO SCH (07:45)
[2021-03-10] MEDS ORDERED: ROPIVACAINE 5 MG/ML 30 ML VIAL ONE (08:04)
[2021-03-10] MEDS ORDERED: MIDAZOLAM 2 MG/2 ML VIAL ONE (08:04)
[2021-03-10] MEDS ORDERED: PROPOFOL 10 MG/ML 20 ML VIAL IV ONE (08:04)
[2021-03-10] MEDS ORDERED: TRANEXAMIC ACID 1,000 MG/10 ML VIAL ONE (08:04)
[2021-03-10] MEDS ORDERED: PHENYLEPHRINE-0.9% NACL SYG 1,000 MCG/10 ML SYRINGE ONE (08:04)
[2021-03-10] MEDS ORDERED: SODIUM CHLORIDE 0.9% 100 ML BAG ONE (08:04)
[2021-03-10] MEDS ORDERED: ceFAZolin 3,000 MG in SODIUM CHLORIDE 0.9% IRRIGATIO 3,000 ML IRRIGATION ONE (08:36)
[2021-03-10] MEDS ORDERED: LACTATED RINGERS 1,000 ML IV ONE (08:48)
[2021-03-10] MEDS ORDERED: NALOXONE 0.4 MG/ML 1 ML VIAL IV PRN (10:05)
[2021-03-10] MEDS ORDERED: hydrOXYzine pamoate 25 MG CAP PO PRN (10:05)
[2021-03-10] MEDS ORDERED: TEMAZEPAM 15 MG CAP PO PRN (10:05)
[2021-03-10] MEDS ORDERED: diazePAM 5 MG TAB PO PRN (10:05)
[2021-03-10] MEDS ORDERED: HYDROmorphone 0.2 MG/1 ML SYRINGE IVP PRN (10:05)
[2021-03-10] MEDS ORDERED: ONDANSETRON 4 MG/2 ML VIAL IVP PRN (10:05)
[2021-03-10] MEDS ORDERED: bisacodyL 10 MG SUPP RECTAL PRN (10:05)
[2021-03-10] MEDS ORDERED: ACETAMINOPHEN TAB 325 MG TAB PO PRN (10:05)
[2021-03-10] MEDS ORDERED: MAGNESIUM HYDROXIDE 2,400 MG/10 ML CUP PO PRN (10:05)
[2021-03-10] MEDS ORDERED: NA PHOS,M-B/NA PHOS,DI-BA 133 ML ENEMA RECTAL PRN (10:05)
[2021-03-10] MEDS ORDERED: traMADol 50 MG TAB PO PRN (10:05)
[2021-03-10] MEDS ORDERED: HYDROcodone/APAP 10-325MG 1 EACH TAB PO PRN (10:05)
[2021-03-10] MEDS ORDERED: ROPIVACAINE 0.2%-NS ON-Q PUMP 1,090 MG, EMPTY PAIN BALL 1 EACH MISCELLANE PRN (10:10)
--- NOTE | 2021-03-10 10:42 | XR ---
EXAMINATION TYPE: XR knee limited RT DATE OF EXAM: 03/10/2021 COMPARISON: NONE TECHNIQUE: Two views submitted HISTORY: Post op FINDINGS: There is a prosthetic knee in near anatomic alignment. There is soft tissue edema and emphysema. IMPRESSION: 1. Postoperative change. Appears in near-anatomic alignment
[2021-03-10] MEDS: HYDROcodone/APAP 5-325MG 1 EACH TAB PO PRN ×2 (15:22→22:23)
--- NOTE | 2021-03-10 17:57 | OP ---
OPERATIVE REPORT DATE OF PROCEDURE: 03/10/2021. SURGEON: Callum Collins MD ANALOG IC DESIGN ENGINEER: Francisco Nieves PA-C PREOPERATIVE DIAGNOSIS: Right knee osteoarthrosis. POSTOPERATIVE DIAGNOSIS: Right knee osteoarthrosis. OPERATION: Right total knee arthroplasty. ANESTHESIA: Spinal with sedation. ESTIMATED BLOOD LOSS: 100 mL. TOURNIQUET TIME: 47 minutes at 250 mmHg. COMPLICATIONS: None apparent. DRAINS: None. DISPOSITION: Post-Anesthesia Care Unit INDICATION: Carolina is a very pleasant 80-year-old female with a longstanding history of right knee pain. History and physical examination are consistent with advanced right knee osteoarthrosis. She has been through significant nonoperative management up to this point. Further treatment options were discussed, and she has decided to go forward with right total knee arthroplasty. The risks of the procedure were discussed with her in detail. These risks included but were not limited to risk of infection, nerve damage, bleeding, pain, and a small risk of deep vein thrombosis which could lead to fatal pulmonary embolism. There is also a risk of loosening of the implant, which could require revision operation. The patient understands these risks. All of her questions were answered to her satisfaction. Appropriate informed consent was obtained. DESCRIPTION OF THE PROCEDURE: The patient was identified in the preoperative holding area. Surgical site was marked by both the patient and myself. She was given 2 grams of Ancef IV for prophylactic purposes. She was then transferred to the operative suite. She was placed supine on the operating room table. A spinal anesthetic was then administered and dosed per the anesthesia department without apparent complication. Examination under anesthesia was then performed. The patient was 2-3 degrees shy of full extension. She had 100 degrees of flexion. The medial collateral ligament, lateral collateral ligament and posterior cruciate ligaments were stable. Tourniquet was then placed high on the right upper thigh, well padded in preparation for surgery. The patient's right lower extremity was then prepped and draped in the usual sterile fashion. Standard surgical pause was then undertaken to ensure that we were operating on the correct site and that appropriate preoperative antibiotics had been given. All staff in the room were in agreement and we proceeded. The outlines of the patella were marked with a surgical pen. A planned 12 cm vertical incision centered over the patella was marked with a surgical pen. The leg was then exsanguinated with an Esmarch dressing. The knee was then flexed and tourniquet inflated to 250 mmHg. The total tourniquet time for the procedure was 47 minutes. Incision was then made with a 10 blade scalpel. Dissection was carried down sharply to the overlying fascia. Great care was taken to minimize the skin flaps. The knee was then exposed using a standard medial parapatellar approach. A small cuff of quadriceps tendon was then left for suturing. She was in a bit of varus preoperatively. A standard medial release was then made. Superficial medial collateral ligament was dissected off the bone around to the posterior aspect of the proximal tibia. The medial meniscus was then excised as well. The lateral meniscus was also released anteriorly. The leg was then externally rotated. The patella was everted. The knee was flexed. Retractors were then placed to protect the collateral ligaments. I then proceeded to remove the infrapatellar fat pad. This was excised sharply tangentially with the fibers of the patellar tendon. I then proceeded to remove the peripheral osteophytes. This was done with a rongeur. I then proceeded with the distal femoral resection. She did have near-full extension. A planned 9 mm resection was then done. The femoral canal was then entered in the midline of the femur approximately 10 mm anterior to the origin of the posterior cruciate ligament. The augustus was then advanced down the center of the femur and placed intramedullary. Based on the preoperative radiographs, the angle between the anatomic and mechanical axis of the femur was approximately 4-5 degrees. The valgus angle of the distal femoral cutting guide was then set at 4 degrees for the right knee. The distal femoral cutting guide was then advanced over the intramedullary augustus. This was seated firmly against the femur. I then, as mentioned, planned to take 9 mm off the distal femur. The cutting block was then secured onto the femur with pins. The jig was then removed. The distal femoral cut was made through the slot of the block. The pins were then removed and the distal femoral cutting block was removed. The accuracy of the distal femoral cuts was checked with 2 flat bars. I then proceeded with femoral sizing. The posterior referencing sizing guide was held firmly against the resected distal surface of the femur. The posterior condyles were resting on the posterior plane of the guide. The sizing stylus was then placed onto the anterior femur. The size was measured as a size 6. I then assessed for femoral rotation. The plan was for 3 degrees external rotation. Three degrees of external rotation was placed onto the jig. These holes were then marked. I then confirmed the rotation by 3 separate methods. This was done using the epicondylar axis as well as Whitesides line and posterior referencing. It was deemed that the external rotation was proper. I then went forward with placing the femoral cutting block. This was placed over the previously placed pin holes. The Thor wing was then placed onto the anterior slots to ensure that we would not notch the anterior femur with the anterior femoral cut. I then proceeded with the anterior femoral cut. This was flush with the anterior cortex of the femur. The posterior cuts were then made followed by the anterior chamfer cut and then the posterior chamfer cut. The cutting block was then removed. Throughout the resection, the collateral ligaments were protected with retractors. I then placed a trial size 6 femur. It fit very nicely medial to lateral and it fit flush with the distal end of the femur. The drill holes were then made. I then proceeded with the tibial cut. I planned for a cruciate-retaining knee. The guide was placed and set for varus, valgus and for slope. The height was set for an approximate 2 mm resection from the medial tibial plateau, which was the lower side. I was happy with the alignment and the amount of resection. The cutting block was then pinned to the proximal tibia. The alignment augustus was removed and the proximal tibia was resected with a reciprocating saw. Again this was done with retractors protecting the collateral ligaments as well as the posterior cruciate ligament. I then proceeded to evaluate the flexion and extension gaps. A 10 mm block was then placed. The flexion and extension gaps were equal. I then proceeded with resection of the posterior osteophytes. She had very minimal posterior osteophytes. This was done using a curved osteotome. This resected the posterior osteophytes, and posterior capsule stripping was done off the posterior aspect of the femur at this time. The osteophytes were then removed. I then proceeded with resection of the patella. The thickness of the patella was measured using a caliper. The thickness was 22 mm. Thickness of the anticipated patellar dome was taken into account. Resection was then performed and confirmed to be equal in 4 quadrants using a caliper. Approximately 14 mm of bone remained after resection. A 29 x 8 standard patellar trial was then placed. The holes were drilled and the trial was then placed. I then proceeded with sizing the tibial plate. A size E tibial plate fit very nicely. I then placed the trial femur, the tibial tray and the patellar button. A 10 mm trial tibial insert was also placed. The components fit very nicely. She had full extension and flexion. The extension and flexion gaps were equal and stable to both varus and valgus stress. The patella tracked appropriately. The tibial tray rotation was then marked with a Bovie. This was externally rotated properly. I then proceeded with tibial preparation. First we drilled the femoral holes and removed the femoral component. The tibial tray was then set for proper external rotation as well as mediolateral placement onto the tibia. It was then pinned into place. I then proceeded with punching the keel. I then decided to proceed with cementing of all of our components. The knee was thoroughly irrigated with sterile saline solution via pulse lavage. The lateral geniculate artery was identified and cauterized. All blood was removed from the bone of the tibia, femur and patella with pulse lavage. I then proceeded with cementing. Two packs of antibiotic bone cement were prepared on the back table by the manager surgical. I then proceeded with cementing of the tibia first. The cement was impacted into the keel as well as deeply seated in the bone. A second coat of cement was then placed. The tibia was then impacted into place. Excess cement was removed with Rosston's and Joker's. I then proceeded with cementing of the femoral component. The femoral component was also cemented using standard technique. Excess cement was removed. A 10 mm trial insert was then placed into the knee. It was brought into full extension with a constant axial load placed until the cement had hardened. The patellar component was then cemented. This was held firmly with a compressive device until the cement had dried. When the cement had dried, the knee was taken out of extension. All excess cement was removed from around the prosthesis. I then trialed the knee with a 10 mm insert. Flexion and extension gaps were appropriate. The knee was stable. It came into full extension. I decided to go forward with 10 mm medial-congruent, cross-linked, cruciate- retaining tibial insert. Polyethylene was then placed onto the tibial tray and locked into place. The knee was then reduced. The knee was again further irrigated with sterile saline solution with antibiotic added. The tourniquet was then deflated. The total tourniquet time for the procedure was 47 minutes at 250 mmHg. Final components were Bandar Persona size 6 cruciate-retaining femoral component, size E tibial tray, a 10 mm medial-congruent, cruciate-retaining polyethylene insert and a 29 x 8 mm patella. I then proceeded with closure. Again the knee was thoroughly irrigated. The quadriceps tendon and the medial retinaculum were reapproximated with #2 Ethibond suture. The extensor mechanism was then closed with a running #2 Quill suture. Subcutaneous tissues were then closed with 2-0 Vicryl interrupted suture. The skin was closed with a running 3-0 Quill suture. Dermabond was applied to the incision. Sterile compressive dressing was then applied. All sponge and needle counts were deemed correct prior to closure. The patient tolerated the procedure without apparent complication. She was transferred to the recovery room in stable condition. MMODL / IJN: [id number] /
[2021-03-10] MEDS: ASPIRIN 81 MG PO SCH (19:33)
--- NOTE | 2021-03-10 20:57 | P.CONS ---
History of Present Illness - Reason for Consult Consult date: 03/10/21 Medical management - Chief Complaint Right total knee arthroplasty - History of Present Illness Patient is a 80-year-old female with a known history of kidney cancer removed from nose, history of left knee replacement, hypertension and osteoarthritis and previous history of smoking was admitted to the hospital for elective right total knee arthroplasty. Patient tolerated the procedure well. Currently pain is 2 out of 10. Patient is on nerve block. Denied any headache or dizziness or lightheadedness. Patient has been afebrile. No chest pain or shortness of breath. No nausea vomiting or abdominal pain or diarrhea. Blood pressure is 134/84 pulse is 63 respiration 16 and pulse ox 95% on room air. Denies any recent illnesses. Review of Systems Constitutional: Patient denies any fever or chills . No generalized weakness or weight loss. Abdomen: Patient denied nausea vomiting and diarrhea and abdominal pain. Cardiovascular: Patient denies any chest pain or short of breath no palpitations. Respiratory: patient denied any cough or sputum production. No shortness of breath Neurologic: Patient denied any numbness or tingling headache. Musculoskeletal: Patient denies any complaints of joint swelling or deformity. Skin: Negative Psychiatric: Negative Endocrine: No heat or cold intolerance. No recent weight gain. Genitourinary: No dysuria or hematuria. All other 14 point ROS negative except the above Past Medical History Past Medical History: Cancer, Hypertension, Osteoarthritis (OA) Additional Past Medical History / Comment(s): Skin cancer - nose, varicose veins, History of Any Multi-Drug Resistant Organisms: None Reported Past Surgical History: Adenoidectomy, Hysterectomy, Joint Replacement, Tonsillectomy Additional Past Surgical History / Comment(s): skin cancer removed from nose, left knee replacement Past Anesthesia/Blood Transfusion Reactions: Postoperative Nausea & Vomiting (PONV) Past Psychological History: No Psychological Hx Reported Smoking Status: Former smoker Past Alcohol Use History: Occasional Additional Past Alcohol Use History / Comment(s): quit smoking 2018, smoked for 15 yrs Past Drug Use History: None Reported - Past Family History Daughter(s) Family Medical History: Cancer Additional Family Medical History / Comment(s): brain cancer, ovarian cancer Sister(s) Family Medical History: Cancer Additional Family Medical History / Comment(s): lung x2 sisters Medications and Allergies Home Medications Medication Instructions Recorded Confirmed Type Multivitamins, Thera [Multivitamin 1 each PO DAILY 04/19/15 03/07/21 History (formulary)] traMADol HCL 50 mg PO BID PRN 09/22/19 03/07/21 History Aspirin [Adult Low Dose Aspirin EC] 81 mg PO DAILY 03/07/21 03/07/21 History Losartan Potassium [Cozaar] 100 mg PO DAILY 03/07/21 03/07/21 History Allergies Allergy/AdvReac Type Severity Reaction Status Date / Time No Known Allergies Allergy Verified 03/10/21 06:50 Physical Exam Vitals: Vital Signs Temp Pulse Pulse Pulse Resp BP BP 03/10/21 14:45 65 03/10/21 14:30 62 03/10/21 14:15 65 03/10/21 14:00 63 03/10/21 13:45 65 03/10/21 13:30 97.6 F 63 16 03/10/21 12:30 64 18 03/10/21 12:00 60 16 03/10/21 11:30 56 L 16 03/10/21 11:00 58 L 16 03/10/21 10:45 55 L 16 03/10/21 10:30 62 18 03/10/21 10:15 60 16 03/10/21 09:58 96.8 F L 67 16 03/10/21 07:45 59 L 16 130/60 03/10/21 06:57 97.4 F L 61 16 138/62 BP Pulse Ox 03/10/21 14:45 130/64 98 03/10/21 14:30 127/74 94 L 03/10/21 14:15 139/52 97 03/10/21 14:00 134/84 95 03/10/21 13:45 142/70 95 03/10/21 13:30 126/83 96 03/10/21 12:30 117/62 96 03/10/21 12:00 115/59 97 03/10/21 11:30 119/58 97 03/10/21 11:00 122/58 97 03/10/21 10:45 127/60 98 03/10/21 10:30 118/57 97 03/10/21 10:15 115/58 97 03/10/21 09:58 116/56 96 03/10/21 07:45 97 03/10/21 06:57 96 Intake and Output 03/10/21 03/10/21 03/10/21 06:59 14:59 22:59 Intake Total 1851 Output Total 100 Balance 1751 Intake: IV 1851 Output: Estimated Blood Loss 100 Other: Weight 67.3 kg 67.3 kg PHYSICAL EXAMINATION: Patient is lying in the bed comfortably, no acute distress, awake alert and oriented.. HEENT: Normocephalic. Neck is supple. Pupils reactive. Nostrils clear. Oral cavity is moist. Neck reveals no JVD, carotid bruits, or thyromegaly. CHEST EXAMINATION: Trachea is central. Symmetrical expansion. Lung booth clear to auscultation and percussion. CARDIAC: Normal S1, S2 with no gallops. No murmurs ABDOMEN: Soft. Bowel sounds normal. No organomegaly. No abdominal bruits. Extremities: reveal no edema. No clubbing or cyanosis Neurologically awake, alert, oriented x3 with well-coordinated movements. No focal deficits noted Skin: No rash or skin lesions. Psychiatric: Cooperative. Nonsuicidal Musculoskeletal: No joint swelling or deformity. Normal range of motion. right knee surgical site is packed. Assessment and Plan Assessment: Status post right total knee arthroplasty postoperative day zero Hypertension controlled. Continue with losartan 100 mg daily as per home regimen. Osteoarthritis History of left total knee arthroplasty History of skin cancer removed from the nose Varicose veins DVT prophylaxis. Plan: Patient be continued on pain management and bowel regimen. Encourage incentive spirometry and PT OT will be consulted. Continue with home blood pressure medications and titrate dose as needed. Continue the DVT prophylaxis with aspirin twice daily. We will follow closely and further recommendations based on clinical course. Thank you for your consult.
[2021-03-10] MEDS ORDERED: SENNOSIDES-DOCUSATE SODIUM 1 EACH TAB PO SCH (21:00)
[2021-03-11] MEDS: LACTATED RINGERS 1,000 ML IV SCH ×3 (02:03→07:22)
[2021-03-11] MEDS: HYDROcodone/APAP 5-325MG 1 EACH TAB PO PRN ×2 (04:24→09:33)
[2021-03-11] MEDS: MELOXICAM 7.5 MG TAB PO SCH (07:12)
[2021-03-11] MEDS: ASPIRIN 81 MG PO SCH (07:12)
[2021-03-11 08:19] VITALS: BP 117/68; PULSE 65; RESP 17; TEMP 97.8
--- NOTE | 2021-03-11 08:28 | P.DS ---
Providers Expected date of discharge: 03/11/21 Attending physician: Callum Collins Consults: 03/10/21 10:05 Consult Physician Routine Consulting Provider: Serina Yoon Consult Reason/Comments: post op medical management Do you want consulting provider notified?: Yes Primary care physician: Carolee Pang - Discharge Diagnosis(es) (1) S/P total knee arthroplasty Patient was admitted to the OR on 03/10/21 to undergo a right total knee arthroplasty. She had failed conservative measures as an outpatient and desired to proceed with elective surgery after given informed consent. She underwent the above procedure which she tolerated well without complication. Postoperative hospital course has remained without complication. On day of discharge she is afebrile, vital signs stable, labs within acceptable ranges, tolerating by mouth meds and diet, voiding without difficulty, positive flatus, denies abdominal pain or calf pain, pain is controlled on oral pain medication and has no new complaints. Wound is benign, neurovascular status is intact, calf is soft and nontender, abdomen soft and nontender. Review of systems is negative for numbness, tingling, fever, chills, chest pain, shortness of breath, nausea, vomiting, dizziness, headaches, slurred speech or other. Current Visit: No Status: Acute Priority: Medium Procedures: Right Total Knee arthroplasty Patient Condition at Discharge: Good Plan - Discharge Summary Discharge Rx Participant: Yes New Discharge Prescriptions: New Aspirin [Adult Low Dose Aspirin EC] 81 mg PO BID #60 tab Docusate [Colace] 100 mg PO BID #60 capsule HYDROcodone/APAP 7.5-325MG [[place] 7.5-325] 1 - 2 each PO Q6HR PRN #42 tab PRN Reason: Pain No Action Multivitamins, Thera [Multivitamin (formulary)] 1 each PO DAILY traMADol HCL 50 mg PO BID PRN PRN Reason: Pain Aspirin [Adult Low Dose Aspirin EC] 81 mg PO DAILY Losartan Potassium [Cozaar] 100 mg PO DAILY Discharge Medication List Multivitamins, Thera [Multivitamin (formulary)] 1 each PO DAILY 04/19/15 [History] traMADol HCL 50 mg PO BID PRN 09/22/19 [History] Aspirin [Adult Low Dose Aspirin EC] 81 mg PO DAILY 03/07/21 [History] Losartan Potassium [Cozaar] 100 mg PO DAILY 03/07/21 [History] Aspirin [Adult Low Dose Aspirin EC] 81 mg PO BID #60 tab 03/10/21 [Rx] Docusate [Colace] 100 mg PO BID #60 capsule 03/10/21 [Rx] HYDROcodone/APAP 7.5-325MG [[place] 7.5-325] 1 - 2 each PO Q6HR PRN #42 tab 03/10/21 [Rx] Follow up Appointment(s)/Referral(s): Callum Collins MD [STAFF PHYSICIAN] - 10 Days Patient Instructions/Handouts: Knee Replacement (DC) Activity/Diet/Wound Care/Special Instructions: Weight bear as tolerated May shower after 3 days if no bleeding Keep wound clean and dry Take meds as directed F/U with Dr. Collins in office Discharge Disposition: HOME WITH HOME HEALTH SERVICES
[2021-03-11] MEDS ORDERED: MULTIVITAMINS, THERA 1 EACH TAB PO SCH ×2 (09:00→12:00)
[2021-03-11] MEDS ORDERED: LOSARTAN 50 MG TAB PO SCH (09:00)
--- NOTE | 2021-03-11 10:15 | P.PN ---
Progress Note - Text 03/11/21 640am 80-year-old female status post total knee replacement by Dr. Collins. Patient has an On-Q pump for postop pain control with the solution running at 8 mL an hour with a VAS of 6. Dressing clean dry and intact. And to continue On-Q pump infusion
--- NOTE | 2021-03-11 10:19 | P.ANPRN ---
Procedure Note - Anesthesia - Nerve Block Performed Right Adductor Canal Infusion Time Out Performed: Yes Date of Procedure: 03/10/21 Procedure Start Time: 07:24 Procedure Stop Time: 07:40 Location of Patient: PreOp Indication: Acute Post-Operative Pain, Requested by Surgeon Sedation Type: Sedate with meaningful contact maintained Preparation: Sterile Prep, Sterile Dressing Position: Supine Catheter: Indwelling Needle Types: Pajunk Needle Gauge: 21 Ultrasound used to visualize needle placement: Yes Ultrasound used to observe medication spread: Yes Blood Aspirated: No Pain Paresthesia on Injection Noted: No Resistance on Injection: Normal Image Stored and Saved: Yes Events: Uneventful and Well Tolerated (ropi .5% 20cc)
--- NOTE | 2021-03-11 10:21 | P.ANPRN ---
Procedure Note - Anesthesia - Nerve Block Performed Right Pravinck Single Time Out Performed: Yes Date of Procedure: 03/10/21 Procedure Start Time: 07:41 Procedure Stop Time: 07:46 Location of Patient: PreOp Indication: Acute Post-Operative Pain, Requested by Surgeon Sedation Type: Sedate with meaningful contact maintained Preparation: Sterile Prep Position: Supine Needle Types: Pajunk Needle Gauge: 21 Ultrasound used to visualize needle placement: Yes Ultrasound used to observe medication spread: Yes Blood Aspirated: No Pain Paresthesia on Injection Noted: No Resistance on Injection: Normal Image Stored and Saved: Yes Events: Uneventful and Well Tolerated (Ropivacaine 0.5% 25cc with dexamethasone 4 mg)
[2021-03-11 11:05] LABS: Basophils # (A) 0.06 X 10*3/uL (0.00-0.10); Basophils % (A) 0.6 %; Eosinophils # (A) 0.34 X 10*3/uL (0.04-0.35); Eosinophils % (A) 3.6 %; HCT 29.6 % (37.2-46.3); HGB 8.9 g/dL (12.0-15.0); Lymphocytes # (A) 1.43 X 10*3/uL (0.90-5.00); Lymphocytes % (A) 15.2 %; MCH 26.9 pg (27.0-32.0); MCHC 30.1 g/dL (32.0-37.0); MCV 89.4 fL (80.0-97.0); Mean Platelet Volume 12.8 fL (9.5-12.2); Monocytes % (A) 10.6 %; Neutrophils # (A) 6.52 X 10*3/uL (1.80-7.70); Neutrophils % (A) 69.6 %; Platelet Count 233 X 10*3/uL (140-440); RBC 3.31 X 10*6/uL (4.10-5.20); RDW 15.1 % (11.5-14.5); WBC 9.39 X 10*3/uL (4.50-10.00)
--- NOTE | 2021-03-11 12:10 | P.PN ---
Subjective Progress Note Date: 03/11/21 Principal diagnosis: Right total knee arthroplasty Patient is a 80-year-old female with a known history of kidney cancer removed from nose, history of left knee replacement, hypertension and osteoarthritis and previous history of smoking was admitted to the hospital for elective right total knee arthroplasty. Patient tolerated the procedure well. Currently pain is 2 out of 10. Patient is on nerve block. Denied any headache or dizziness or lightheadedness. Patient has been afebrile. No chest pain or shortness of breath. No nausea vomiting or abdominal pain or diarrhea. Blood pressure is 134/84 pulse is 63 respiration 16 and pulse ox 95% on room air. Denies any recent illnesses. 03/11/21 Patient is currently resting in the bed comfortably. Awake alert and oriented 3. Patient is on pain control as per anesthesia. Blood pressure is stable. No complaints of chest pain or shortness of breath. No nausea vomiting or abdominal pain. No dizziness or lightheadedness. Patient is able to participating PTOT Patient is being discharged home today. Discharge medication reconsultation was done. Current medications reviewed. Objective - Vital Signs Vital signs: Vital Signs Temp 97.8 F 03/11/21 08:00 Pulse 65 03/11/21 08:00 Resp 17 03/11/21 08:00 BP 117/68 03/11/21 08:00 Pulse Ox 97 03/11/21 08:00 Intake & Output 03/10/21 03/11/21 03/11/21 18:59 06:59 18:59 Intake Total 2087 Output Total 100 Balance 1986 Weight 67.3 kg Intake: IV 1851 Oral 236 Output: Estimated Blood Loss 100 Other: Voiding Method Toilet Toilet # Voids 1 1 # Bowel Movements 0 - Exam PHYSICAL EXAMINATION: Patient is lying in the bed comfortably, no acute distress, awake alert and oriented.. HEENT: Normocephalic. Neck is supple. Pupils reactive. Nostrils clear. Oral cavity is moist. Neck reveals no JVD, carotid bruits, or thyromegaly. CHEST EXAMINATION: Trachea is central. Symmetrical expansion. Lung booth clear to auscultation and percussion. CARDIAC: Normal S1, S2 with no gallops. No murmurs ABDOMEN: Soft. Bowel sounds normal. No organomegaly. No abdominal bruits. Extremities: reveal no edema. No clubbing or cyanosis Neurologically awake, alert, oriented x3 with well-coordinated movements. No focal deficits noted Skin: No rash or skin lesions. Psychiatric: Cooperative. Nonsuicidal Musculoskeletal: No joint swelling or deformity. Normal range of motion. right knee surgical site is packed. - Labs CBC & Chem 7: 03/11/21 07:55 Labs: Abnormal Lab Results - Last 24 Hours (Table) 03/11/21 Range/Units 07:55 RBC 3.31 L (4.10-5.20) X 10*6/uL Hgb 8.9 L (12.0-15.0) g/dL Hct 29.6 L (37.2-46.3) % MCH 26.9 L (27.0-32.0) pg MCHC 30.1 L (32.0-37.0) g/dL RDW 15.1 H (11.5-14.5) % MPV 12.8 H (9.5-12.2) fL Assessment and Plan Assessment: Status post right total knee arthroplasty postoperative day 1 Hypertension controlled. Continue with losartan 100 mg daily as per home regimen. Osteoarthritis History of left total knee arthroplasty History of skin cancer removed from the nose Varicose veins DVT prophylaxis. Plan: Patient be continued on pain management and bowel regimen. Encourage incentive spirometry and PT OT will be consulted. Continue with home blood pressure medications and titrate dose as needed. Continue the DVT prophylaxis with aspirin twice daily. Patient is being discharged home today. Follow with primary care physician in 3 to 5 days.
== END 2021-03-11 11:11 | disposition home health service (06) ==
LOC: OR 06:21 → 4SSUR 09:58 → OR 03-11 11:11
PROVIDERS: ATTEND Orthopaedic Surgery Sports Medicine
DX: M17.11 Unilateral primary osteoarthritis, right knee (principal); Z20.822 Contact with and (suspected) exposure to COVID-19
CPT/HCPCS: 27447; 97161; 64999; 64448; 76942; 85025; 88300; 87635; 73560; C1776; C1713; J2250; J1100; J0690 ×2; J2405; J2795 ×2; J2370; J2704

== ENCOUNTER → 2021-12-14 | Outpatient (CLI) | payer MEDICARE ==
--- NOTE | 2021-12-15 19:15 | BD ---
EXAMINATION TYPE: Axial Bone Density DATE OF EXAM: 12/14/2021 CLINICAL HISTORY: 81 year old Female. ICD-10 CODE: M85.89 DISORDER OF BONE,M19.041 OSTEOARTHRITIS Height: 61 Weight: 150.7 FRAX RISK QUESTIONS: Alcohol (3 or more units per day): no Family History (Parent hip fracture): no Glucocorticoids (More than 3mos): no (Ex: prednisone, prednisolone, methylprednisolone, dexamethasone, and hydrocortisone). History of Fracture in Adulthood: no Secondary Osteoporosis: no 1. Type 1 Diabetes: no 2. Hyperthyroidism: no 3. Menopause before 45: no 4. Malnutrition: no 5. Chronic liver disease: no Rheumatoid Arthritis: yes Current Tobacco Use: no RISK FACTORS HISTORY OF: Surgery to Spine/Hip(right/left)/Wrist (right/left): no Family History of Osteoporosis: no Active: yes Diet low in dairy products/other sources of calcium: no Postmenopausal woman: yes Lost more than 2 inches in height since high school: yes MEDICATIONS: Additional History: EXAM MEASUREMENTS: Bone mineral densitometry was performed using the [employer] System. Bone mineral density as measured about the Lumbar spine is: ----- L1-L4(G/cm2): 1.234 T Score Values are as follows: ----- L1: -0.3 ----- L2: -0.7 ----- L3: -0.8 ----- L4: 3.0 ----- L1-L4: 0.5 Bone mineral density has: increased 5.0 % since study of: 05.09.2016 Bone mineral density about the R hip (g/cm2): 0.908 Bone mineral density about the L hip (g/cm2): 0.776 T Score values are as follows: -----R Neck: -0.9 -----L Neck: -1.9 -----R Total: -2.7 -----L Total: -2.5 Bone mineral density has: decreased -10.4 % since study of: 05.09.2016 FRAX%s: The graph provided illustrates a 19.4% chance for a major osteoporotic fx and a 6.3% chance f or the hips probability for fx in 10 years time. IMPRESSION: Osteopenia (T Score between -2.5 and -1). There is slightly increased risk of fracture and the patient may be considered for treatment. Re-Screen 2-5 years. NOTE: T-SCORE=SD OF THE YOUNG ADULT MEAN.
--- NOTE | 2021-12-16 07:22 | US ---
EXAMINATION TYPE: US thyroid st tissue head/neck DATE OF EXAM: 12/14/2021 COMPARISON: US CLINICAL HISTORY: R13.10 DYSPHAGIA,E04.2 GOITER. Goiter. Hx FNA. Unable to view images on prior US, c an only see report due to computer issues, cannot correlate with certainty. GLAND SIZE: Right Lobe: 6.3 x 3.1 x 2.7 cm Overall Parenchyma: heterogenous Left Lobe: 4.8 x 1.5 x 1.5 cm Overall Parenchyma: heterogeneous Isthmus Thickness: 0.31 cm NODULES RIGHT: # of nodules measured on right: 2 1. 3.4 X 3.2 x 2.5 cm, mid-inf medial, solid or almost completely solid, hypoechoic nodule, which i s wider than tall, with smooth margins, without echogenic foci. Prior size by report only, unable to view images: Prior US 3.1 x 2.2 x 3.0 cm 2. 1.1 X 1.1 x 1.0 cm, upper lateral, solid or almost completely solid, isoechoic nodule, which is wider than tall, with ill-defined margins, with echogenic foci. Prior size by report only: 1.4 x 0.9 x 1.0 cm LEFT: # of nodules measured on left: 2 1. 0.9 X 0.7 x 0.5 cm, mid lateral, cystic or almost completely cystic, anechoic nodule, which is w ider than tall, with smooth margins, without echogenic foci. Prior size: Unable to correlate 2. 0.6 X 0.8 x 0.5 cm, mid mid, cystic or almost completely cystic, anechoic nodule, which is wide r than tall, with smooth margins, with echogenic focus. Prior size: Unable to correlate ISTHMUS: # of nodules measured in the isthmus right: 1 1. 1.0 X 0.9 x 0.7 cm cystic or almost completely cystic, nodule, which is wider than tall, with sm ooth margins, with echogenic focus. Prior size: Unable to correlate Bilateral neck scanned, no evidence of lymphadenopathy. IMPRESSION: Nonspecific thyroid enlargement, heterogeneity and thyroid nodules.
--- NOTE | 2021-12-16 11:37 | MM ---
Reason for Exam: Screening (asymptomatic). Last mammogram was performed 1 year(s) and 9 month(s) ago. Patient History: Menarche at age 12. First Full-Term at age 19. Postmenopausal. Other cancer, age 70. Paternal cousin had breast cancer. Risk Values: Nelida 5 year model risk: 1.2%. NCI Lifetime model risk: 1.5%. Prior Study Comparison: 09/07/2017 Bilateral Screening Mammogram, [facility]. 09/17/2018 Bilateral Screening Mammogram, [facility]. 03/24/2020 Bilateral Screening Mammogram, [facility]. Tissue Density: There are scattered fibroglandular densities. Findings: Analyzed By CAD. No discrete abnormality. Benign bilateral vascular and oil cyst calcifications. Overall Assessment: Benign, BI-RAD 2 Management: Screening Mammogram of both breasts in 1 year. A clinical breast exam by your physician is recommended on an annual basis and results should be correlated with mammographic findings. Electronically signed and approved by: Shaheen Wilkinson M.D. Radiologist
== END | disposition home or self-care (01) ==
LOC: RADUSWWP 14:06
PROVIDERS: ATTEND Family Medicine
DX: Z12.31 Encounter for screening mammogram for malignant neoplasm of breast (principal); M81.0 Age-related osteoporosis without current pathological fracture; E04.2 Nontoxic multinodular goiter; Z78.0 Asymptomatic menopausal state; Z80.3 Family history of malignant neoplasm of breast
CPT/HCPCS: 76536; 77063; 77067; 77080

== ENCOUNTER → 2022-07-04 | Outpatient (CLI) | payer MEDICARE ==
--- NOTE | 2022-07-04 12:18 | XR ---
EXAMINATION TYPE: XR foot limited bilateral DATE OF EXAM: 07/04/2022 COMPARISON: NONE HISTORY: Pain TECHNIQUE: Two views of each foot are submitted. FINDINGS: Left foot: Diffuse osteopenia with severe hypertrophic arthropathy. No acute fracture or dislocation. Arthropathy of the tarsometatarsal junction. PIP and DIP joints limited due to positioning. Right foot:Diffuse osteopenia with severe hypertrophic arthropathy. No acute fracture or dislocation. Arthropathy of the tarsometatarsal junction. PIP and DIP joints limited due to positioning. IMPRESSION: 1. Bilateral severe hypertrophic arthropathy of the first MTP. 2. bilateral tarsometatarsal joint arthropathy present in the basis of osteoarthritis is also occasio suleman associated with gouty arthritis correlate clinically.
--- NOTE | 2022-07-04 12:18 | XR ---
EXAMINATION TYPE: XR wrist limited bilateral DATE OF EXAM: 07/04/2022 CLINICAL HISTORY: OSTEOARTHRITIS HANDS AND WRISTS TECHNIQUE: Frontal, lateral and oblique images of the bilateral are obtained. COMPARISON: None FINDINGS: I do not see evidence for acute fracture. On the left there is widening of the scapholunate joint space measuring 7.5 mm to reflect ligamentous injury. Moderate radiocarpal joint space narrowi ng left greater than right. Intercarpal joint space narrowing noted as well. IMPRESSION: 1. Correlate for ligamentous injury left scapholunate ligament 2. Intercarpal and radiocarpal joint space narrowing left greater than right.
--- NOTE | 2022-07-04 12:21 | XR ---
EXAMINATION TYPE: XR hand limited bilateral DATE OF EXAM: 07/04/2022 COMPARISON: NONE HISTORY: Pain TECHNIQUE: 2 views of the bilateral hands and. . FINDINGS: Diffuse osteopenia with severe arthropathy of the DIP joints, moderate arthropathy at the MCP, PIP an d first carpometacarpal joint. Central erosive changes involving the second through third DIP joints of the right hand and second and third digits of the left hand compatible with erosive osteoarthritis . There is mild radiocarpal joint narrowing on the right and severe left-sided radiocarpal joint. There is widening of the scapholunate joint on the left which could be associated with ligamentous disrupt ion. IMPRESSION: 1. 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 2. Severe left-sided radiocarpal joint arthropathy with widening of the scapholunate joint may be ass ociated with ligamentous injury and osteonecrosis of the scaphoid. Consider MRI follow-up.
== END | disposition home or self-care (01) ==
LOC: RADXRYALE 11:28
PROVIDERS: ATTEND Internal Medicine Rheumatology
DX: M19.071 Primary osteoarthritis, right ankle and foot (principal); M19.231 Secondary osteoarthritis, right wrist; M19.072 Primary osteoarthritis, left ankle and foot; M19.032 Primary osteoarthritis, left wrist; M19.042 Primary osteoarthritis, left hand

== ENCOUNTER → 2023-01-12 | Outpatient (CLI) | payer MEDICARE ==
--- NOTE | 2023-01-15 08:24 | MM ---
Reason for Exam: Screening (asymptomatic). Last mammogram was performed 1 year(s) and 1 month(s) ago. Patient History: Menarche at age 12. First Full-Term at age 19. Hysterectomy at age 53. Postmenopausal. Other cancer, age 70. Paternal cousin had breast cancer. Risk Values: Nelida 5 year model risk: 1.1%. NCI Lifetime model risk: 1.3%. Prior Study Comparison: 09/17/2018 Bilateral Screening Mammogram, [facility]. 03/24/2020 Bilateral Screening Mammogram, [facility]. 12/14/2021 Bilateral MG 3D screening mammo w/cad, [facility]. Tissue Density: The breast tissue is heterogeneously dense. This may lower the sensitivity of mammography. Findings: Analyzed By CAD. There is no suspicious group of microcalcifications or new suspicious mass. Benign-appearing calcifications bilaterally. Overall Assessment: Benign, BI-RAD 2 Management: Screening Mammogram of both breasts in [address] [facility] will attempt to contact patient to return for supplemental views and ultrasound if indicated. Patient should continue monthly self-breast exams. A clinical breast exam by your physician is recommended on an annual basis. This exam should not preclude additional follow-up of suspicious palpable abnormalities. Note on Nelida scores and lifetime risk: 1. A Nelida score greater than 3% is considered moderate risk. If this is the case, consider specialist referral to assess eligibility for a risk reducing agent. 2. If overall lifetime risk for the development of breast cancer is 20% or higher, the patient may qualify for future screening with alternating mammogram and breast MRI. Electronically signed and approved by: Marty Antoine DO
== END | disposition home or self-care (01) ==
LOC: RADMAMWWP 08:11
PROVIDERS: ATTEND Family Medicine
DX: Z12.31 Encounter for screening mammogram for malignant neoplasm of breast (principal); Z78.0 Asymptomatic menopausal state; Z80.3 Family history of malignant neoplasm of breast
CPT/HCPCS: 77063; 77067

== ENCOUNTER → 2023-06-01 | Outpatient (CLI) | payer MEDICARE ==
--- NOTE | 2023-06-01 12:42 | US ---
EXAMINATION TYPE: US abdomen complete DATE OF EXAM: 06/01/2023 COMPARISON: NONE CLINICAL INDICATION: Female, 82 years old with history of R10.12 LEFT UPPER QUADRANT PAIN; Bilateral flank pain and epigastric pain with nausea and vomiting. Hx HTN TECHNIQUE: Multiple sonographic images of the abdomen are obtained. FINDINGS: EXAM MEASUREMENTS: Liver Length: 13.2 cm Gallbladder Wall: 0.2 cm CBD: 0.5 cm Spleen: 6.2 cm Right Kidney: 9.6 x 4.9 x 4.7 cm Left Kidney: 8.6 x 4.4 x 4.5 cm Pancreas: Suboptimally visualized due to body habitus and bowel gas. Liver: Slightly coarsened appearance probably technical. No focal lesion seen. Gallbladder: wnl CBD: wnl Spleen: wnl Right Kidney: wnl Left Kidney: wnl Upper IVC: wnl Abd Aorta: wnl IMPRESSION: No gallstones or biliary ductal dilatation. Suboptimal visualization of the pancreas. No hydronephros is on either side.
== END | disposition home or self-care (01) ==
LOC: RADUSWWP 06:55
PROVIDERS: ATTEND Family Medicine
DX: R10.12 Left upper quadrant pain (principal); R11.2 Nausea with vomiting, unspecified; R10.13 Epigastric pain; I10 Essential (primary) hypertension
CPT/HCPCS: 76700

== ENCOUNTER 2023-07-20 09:42 | Day surgery (SDC) | payer MEDICARE ==
[2023-07-19 10:09] VITALS: BMI 24.9
[2023-07-20] MEDS: LACTATED RINGERS 1,000 ML IV SCH (10:33)
[2023-07-20 10:50] VITALS: RESP 16; TEMP 97.5
[2023-07-20] MEDS ORDERED: LIDOCAINE 2% (PF) 20 MG/ML 5 ML VIAL ONE (10:58)
[2023-07-20] MEDS ORDERED: PROPOFOL 10 MG/ML 20 ML VIAL IV ONE (10:58)
--- NOTE | 2023-07-20 11:08 | P.PCN ---
Date of Procedure: 07/20/23 Procedure(s) Performed: BRIEF HISTORY: Patient is a 82-year-old, pleasant, white female scheduled for an upper endoscopy as a part of evaluation of epigastric pain/heartburn/intermittent nausea vomiting for the last several months duration. She was treated with Pepcid with some help.. PROCEDURE PERFORMED: Esophagogastroduodenoscopy with biopsy. PREOPERATIVE DIAGNOSIS: Chronic epigastric pain/heartburn/intermittent nausea vomiting. IV sedation per anesthesia. PROCEDURE: After informed consent was obtained, the patient was brought into the endoscopy unit. IV sedation was administered by Anesthesia under continuous monitoring. Initially the Olympus GIF-140 video endoscope was inserted into the mouth. Esophagus intubated without any difficulty. It was gradually advanced into the stomach and duodenum and carefully examined. The bulb and the second part of the duodenum appeared normal. The scope at this time was withdrawn to the stomach, adequately insufflated with air, and upon careful examination, mucosa of the antrum, body, cardia and the fundus appeared normal. The scope was then withdrawn into the esophagus.large hiatal hernia noted. The GE junction was located at 28 cm from the incisors.there were linear erosions and ulcerations in the distal esophagus consistent with LA grade C reflux esophagitis. Also there was short segment of Reid's esophagus and from Kasia 8-30 cm from the incisors and multiple biopsies were done from this area.rest of the esophagus appeared normal and the patient tolerated the procedure well.l. IMPRESSION: 1. Large hiatal hernia. 2. lLnear erosions and ulcerations in the distal esophagus consistent with LA grade C reflux esophagitis. 3. 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 She was advised to follow with the biopsy results. In the meantime she'll be started on omeprazole 20 mg twice daily half hour before breakfast and dinnertime and follow antireflux measures.
[2023-07-20 11:33] VITALS: BP 127/62; PULSE 68
== END 2023-07-20 11:55 | disposition home or self-care (01) ==
LOC: ORWHC2ENDO 09:42
PROVIDERS: ATTEND Internal Medicine Gastroenterology
DX: K22.10 Ulcer of esophagus without bleeding (principal); K21.9 Gastro-esophageal reflux disease without esophagitis; K44.9 Diaphragmatic hernia without obstruction or gangrene; G89.29 Other chronic pain; I10 Essential (primary) hypertension; E78.5 Hyperlipidemia, unspecified; F32.A Depression, unspecified; Z79.899 Other long term (current) drug therapy
CPT/HCPCS: 88305; 43239; J2704; J2001

== ENCOUNTER → 2023-09-05 | Outpatient (CLI) | payer MEDICARE ==
--- NOTE | 2023-09-05 14:18 | P.PAINPG ---
PQRS Measure Charge Sheet Comment: HISTORY OF PRESENT ILLNESS: An 82 yr old female as a referral from Dr Perez presents today w severe and chronic neck pain > 4 yr secondary to DDD, spondylosis and facet arthropathy without myelopathy for evaluation. Pt states pain level is provoked at 6 /10 in intensity, constant, localized in the cervical spine, predominantly axial, throbbing in character without shooting pain. Pain is provoked by over activity. Pain is alleviated by PT x 6 wks which ended in 2022, physician guided home exercises/ stretches daily since Jan 2023 including bike riding 10- 15 min daily, heat, medications (Duloxetine, Ibu), use of a cane and soft C- collar, repositioning and rest . Cervical disability score at 37. PMH: OA, Skin CA, HTN PSH: Adenoidectomy, Hysterectomy, L Knee Replacement, Tonsillectomy, EGD (2023) SH: 55 pack/ yr former tobacco user, Occasional ETOH use, No illicit drug use FH: Sis- Lung Ca. Sis #2- Lung CA. Daughter- Brain CA/ Ovarian CA All: See list Meds: See list REVIEW OF ORGAN SYSTEMS: CONSTITUTIONAL: No fevers or chills. No recent weight loss. NEUROLOGICAL: + numbness and tingling along the distal extremities. No seizure disorders or headaches. MUSCULOSKELETAL: + pain PSYCHIATRIC: Denies current depression or suicidal thoughts. Physical Examinations : Constitutional : Cooperative , not in acute distress . Neurologic : Cranial nerve II to XII intact. No focal neurological deficits. Psychiatric : alert & oriented x 3. Matching mood & appropriate affect. Judgment & insight intact. Musculoskeletal : Cervical Spine Motor strength in the deltoid and biceps: Normal right side. Normal Left side Motor strength biceps and the wrist extensors: Normal right side . Normal left side Motor strength in the triceps muscle: Normal right side. Normal left side Deep tendon reflexes: Normal at the biceps. Normal at Brachioradialis. Normal at triceps Vertebral body tenderness to deep palpation over C7 Cervical facet loading test: positive bilaterally Spurling test: positive bilaterally Neck distraction test: positive bilaterally Yajaira sign: positive bilaterally Lumbar spine Motor strength lower extremities ,thigh and legs 5/5 Right side , 5/5 Left side Deep tendon reflexes : Normal Knee Jerk. Normal Ankle Jerk Vertebral body tenderness over Zaidi Test positive Lumbar facet Loading Test: positive Right / positive Left Range of motion of the lumbar spine Flexion 30 degrees, extension 10 degrees Straight Leg Raise test: Left/ Right positive at degrees Maya test: positive right / positive left. Severe tenderness over the Sacroiliac joint on the Right / Left sides Gaenslen test: positive bilaterally Seated flexion test: positive bilaterally. Sacral spine : Severe tenderness over the Sacroiliac joint: right side / left side Range of motion: Flexion of the lumbar spine <60 degrees Range of motion: Extension of the lumbar spine <20 degrees Gaenslen's Test positive Maya test: positive right side / left side Thigh Thrust Test Sacral Thrust Test Imaging: Cervical x ray from 07/31/23 reviewed Assessment/ Plan : Cervical DDD Recommendation of MRI non contrast of the cervical spine M50.30. All questions answered. I have spent greater than 30 minutes on patient care today. Dr Marshall was available by phone for the evaluation of this patient. The time was used to review the medical records including relevant urine studies and Prescription history (MAPs), review of the available imaging, evaluation and examination of the patient, coordination of care with the medical staff and if applicable referring physicians, as well as creation of the medical record - Pain Location Bilateral Neck Non-Pharmacological Interventions: Heat, Inactivity, Position/Reposition Pharmacological Interventions: Scheduled Medication PQRS Narrative: Smoking Status Never smoker Home Medications: Ambulatory Orders Multivitamins, Thera [Multivitamin (formulary)] 1 each PO DAILY 04/19/15 Acetaminophen Tab [Tylenol] 650 mg PO Q4H PRN 07/19/23 DULoxetine HCL [Cymbalta] 30 mg PO DIRECTED PRN 07/19/23 Losartan/Hydrochlorothiazide [Losartan-Hctz 100-25 mg Tab] 1 tab PO DAILY 07/19/23 Nf-Calcium Dose Unk 1 tab PO Q30D 07/19/23 Controlled Substance Measures - Controlled Substance Measures Is patient prescribed a controlled substance at discharge?: No
[2023-09-05 14:28] VITALS: BP 138/88; PULSE 69; RESP 15; TEMP 98.1
== END ==
LOC: PNWHC3 13:33
PROVIDERS: ATTEND Specialist
DX: M51.16 Intervertebral disc disorders with radiculopathy, lumbar region (principal); M47.812 Spondylosis without myelopathy or radiculopathy, cervical region; M50.323 Other cervical disc degeneration at C6-C7 level; Z87.891 Personal history of nicotine dependence
CPT/HCPCS: 99211

== ENCOUNTER → 2023-09-09 | Outpatient (CLI) | payer MEDICARE ==
--- NOTE | 2023-09-09 12:17 | MR ---
EXAMINATION TYPE: MR cervical spine wo con DATE OF EXAM: 09/09/2023 COMPARISON: None HISTORY: Pain in body from osteoarthritis, Headaches, Weakness Right arm and fingers TECHNIQUE: Multiplanar, multisequence images of the cervical spine were acquired without contrast. Findings: The craniovertebral junction relationships and prevertebral soft tissues are normal. The cervical vertebral segments are normal in height and alignment and there is no fracture or sublux ation. There is mild to moderate disc space narrowing at the C2-3, C4-5, C5-6 and C6-7 levels. There is prominent posterior disc bulge and hypertrophic spurring at the C4-5, C5-6 and C6-7 levels resulting in moderate cervical stenosis at C4-5 and C5-6 and mild stenosis at C6-7. The posterior dis c spur complex is greatest on the left at C5-6 and C6-7 compromising the left lateral recess series. The cervical cord is normal in size and signal intensity. There is multilevel bilateral neural foraminal stenosis as follows; mild at C3-4 on the left, mild at C4-5 bilaterally, and moderate to severe at C6-7 left. The paraspinal soft tissues are unremarkable. IMPRESSION: 1. Multilevel [id number] degenerative disease as described above. 2. Multilevel cervical stenosis and left lateral recess stenosis in the mid and lower cervical spine as described above. 3. Multilevel neural foraminal stenosis as described above. 4. Normal cervical cord in size and signal intensity.
== END | disposition home or self-care (01) ==
LOC: RADMRIMAIN 10:58
PROVIDERS: ATTEND Specialist
DX: M50.30 Other cervical disc degeneration, unspecified cervical region (principal); M99.71 Connective tissue and disc stenosis of intervertebral foramina of cervical region
CPT/HCPCS: 72141

== ENCOUNTER → 2023-10-03 | Outpatient (CLI) | payer MEDICARE ==
[2023-10-03 13:35] VITALS: BP 130/59; PULSE 64; RESP 16
--- NOTE | 2023-10-03 14:54 | P.PAINPG ---
PQRS Measure Charge Sheet Comment: HISTORY OF PRESENT ILLNESS: An 82 yr old female presents today w severe and chronic neck pain > 4 yr secondary to DDD, spondylosis and facet arthropathy without myelopathy for MRI results. Pt states pain level is provoked at 6 /10 in intensity, constant, localized in the cervical spine, predominantly axial, throbbing in character without shooting pain. Pain is provoked by over activity. Pain is alleviated by PT x 6 wks which ended in 2022, physician guided home exercises/ stretches daily since Jan 2023 including bike riding 10-15 min daily, heat, medications, use of a cane and soft C-collar, repositioning and rest . Cervical disability score at 37. Interventional procedures include Medications include Duloxetine REVIEW OF ORGAN SYSTEMS: CONSTITUTIONAL: No fevers or chills. No recent weight loss. NEUROLOGICAL: + numbness and tingling along the distal extremities. No seizure disorders or headaches. MUSCULOSKELETAL: + pain PSYCHIATRIC: Denies current depression or suicidal thoughts. Physical Examinations : Constitutional : Cooperative , not in acute distress . Neurologic : Cranial nerve II to XII intact. No focal neurological deficits. Psychiatric : alert & oriented x 3. Matching mood & appropriate affect. Judgment & insight intact. Musculoskeletal : Cervical Spine Motor strength in the deltoid and bi ceps: Normal right side. Normal Left side Motor strength biceps and the wrist extensors: Normal right side . Normal left side Motor strength in the triceps muscle: Normal right side. Normal left side Deep tendon reflexes: Normal at the biceps. Normal at Brachioradialis. Normal at triceps Vertebral body tenderness to deep palpation over C7 Cervical facet loading test: positive bilaterally Spurling test: positive bilaterally Neck distraction test: positive bilate rally BL C6-C7 Yajaira sign: positive bilaterally Lumbar spine Motor strength lower extremities ,thigh and legs 5/5 Right side , 5/5 Left side Deep tendon reflexes : Normal Knee Jerk. Normal Ankle Jerk Vertebral body tenderness over Zaidi Test positive Lumbar facet Loading Test: positive Right / positive Left Range of motion of the lumbar spine Flexion 30 degrees, extension 10 degrees Straight Leg Raise test: Left/ Right positive at degrees Maya test: positive right / positive left. Severe tenderness over the Sacroiliac joint on the Right / Left sides Gaenslen test: positive bilaterally Seated flexion test: positive rebeca aterally. Sacral spine : Severe tenderness over the Sacroiliac joint: right side / left side Range of motion: Flexion of the lumbar spine <60 degrees Range of motion: Extension of the lumbar spine <20 degrees Gaenslen's Test positive Maya test: positive right side / left side Thigh Thrust Test Sacral Thrust Test Imaging: Cervical x ray from 07/31/23 reviewed MRI non contrast of the cervical spine from 09/09/23 reviewed Assessment/ Plan : Cervical DDD Recommendation of DEVORAH C6-C7 #1 and PT x 6 wks to integrate w therapeutic massage M50.30. May need a series of questions for optimal pain relief. Risks, benefits of procedure discussed and pt verbalized understanding. Protocol for discontinuation/ continuation of medications vane procedure discussed. All questions answered. I have spent greater than 30 minutes on patient care today. Dr Marshall was available by phone for the evaluation of this patient. The time was used to review the medical records including relevant urine studies and Prescription history (MAPs), review of the available imaging, evaluation and examination of the patient, coordination of care with the medical staff and if applicable referring physicians, as well as creation of the medical record PQRS Narrative: Smoking Status Never smoker Hx Alcohol Use (MH) No Home Medications: Ambulatory Orders Multivitamins, Thera [Multivitamin (formulary)] 1 each PO DAILY 04/19/15 Acetaminophen Tab [Tylenol] 650 mg PO Q4H PRN 07/19/23 DULoxetine HCL [Cymbalta] 30 mg PO DIRECTED PRN 07/19/23 Losartan/Hydrochlorothiazide [Losartan-Hctz 100-25 mg Tab] 1 tab PO DAILY 07/19/23 Nf-Calcium Dose Unk 1 tab PO Q30D 07/19/23 Controlled Substance Measures - Controlled Substance Measures Is patient prescribed a controlled substance at discharge?: No
== END ==
LOC: PNWHC3 12:54
PROVIDERS: ATTEND Specialist
DX: M50.323 Other cervical disc degeneration at C6-C7 level (principal)
CPT/HCPCS: 99211

== ENCOUNTER 2023-10-23 06:46 | Day surgery (SDC) | payer MEDICARE ==
[~2023-10-23 06:46] MED LIST changes: +LACTATED RINGERS 1,000 ML IV SCH; -LIDOCAINE 1% (10MG/ML) FOR IV START INTRADERMA PRN; -ONDANSETRON 4 MG/2 ML VIAL IVP ONE
[2023-10-23 07:32] VITALS: TEMP 97.3
[2023-10-23] MEDS ORDERED: DEXAMETHASONE SOD PHOSPHATE 10 MG/ML 1 ML VIAL ONE (08:08)
[2023-10-23] MEDS ORDERED: IOPAMIDOL M200 10 ML VIAL ONE (08:08)
--- NOTE | 2023-10-23 08:27 | P.PCN ---
Date of Procedure: 10/23/23 Surgeon: Venkat Roland Pathology: none sent Condition: stable Disposition: PACU Description of Procedure: PROCEDURE 1. Cervical epidural steroid injection under fluoroscopic guidance, C7-T1 Rt paramedian approach. 2. Cervical epidurogram. : PREOPERATIVE DIAGNOSIS: Cervical radiculopathy, cervical spondylosis without myelopathy POSTOPERATIVE DIAGNOSIS: : Same as above ANESTHESIA: Local anesthesia only with 1% lidocaine . EBL 0 PROCEDURE INDICATION: The patient with neck pain and radiculopathy unresponsive to conservative treatment consents for procedure. PROCEDURE DESCRIPTION / TECHNIQUE: The patient was seen and identified in the preoperative area. Risks, benefits, complications, including but not limited to infections ,bleeding , allergic reactions to the medications ,and not complete pain relief, and alternatives were discussed with the patient, the patient agreed to proceed with the procedure and signed the consent. Patient was taken to the OR and time out was completed. The patient was placed in the prone position on the procedure table. A pillow was placed under the patients chest to increase the flexion of the cervical spine . The cervical area was prepped and draped in the usual sterile fashion. Vital signs were closely monitored during the procedure. Conscious sedation was used during the procedure to decrease patients anxiety. Using anterior-posterior fluoroscopy, the C6-7 interlaminar space was identified and the skin over this site was marked and then infiltrated with 1% lidocaine subcutaneously.due to their own epidural space at this level and after 2 attempts of getting into the epidural space at this level I decided to go one level lower at C7-T1 in the right paramedian approach. Subsequently, a 20-gauge 3-1/2-inch Tuohy epidural needle was inserted and advanced toward the epidural space by means of loss of resistance to air technique and guided by AP and lateral fluoroscopy. The needle tip contacted the lamina of T1 vertebra first, then it was walked off bone and into the epidural space using the loss of to air and fluoroscopic guidance to identify the epidural space. The correct needle position in the epidural space was verified with the injection of 1 mL of the water soluble contrast dye Isovue and observing an excellent epidurogram with the epidural spread of the dye, after negative aspiration for blood and CSF and in the absence of paresthesias. Again after negative aspiration, a 2 ml mixture containing 10 mg of Decadron and 1 ml of preservative free Normal Saline solution was injected and a washout of epidurogram was seen. Needle was withdrawn intact, skin was cleansed, and bandages were applied. A copy of the needle placement picture was saved to the fluoroscopy machine.
[2023-10-23 08:49] VITALS: BP 112/49; PULSE 61; RESP 18
--- NOTE | 2023-10-23 10:01 | FL ---
EXAMINATION TYPE: FL guided pain mgmt statistic DATE OF EXAM: 10/23/2023 FLUOROSCOPY 42 sec fluoro, dap .[id number] mGym2, 2 images submitted for cervical epidural injection.
== END 2023-10-23 09:02 | disposition home or self-care (01) ==
LOC: ORPAIN 06:46
PROVIDERS: ATTEND Anesthesiology
DX: M47.22 Other spondylosis with radiculopathy, cervical region (principal); Z79.899 Other long term (current) drug therapy
CPT/HCPCS: 62321; J1100; Q9966

== ENCOUNTER → 2023-11-08 | Outpatient (CLI) | payer MEDICARE ==
[2023-11-08 14:24] VITALS: BP 119/57; PULSE 67; RESP 18
--- NOTE | 2023-11-08 14:42 | P.PAINPG ---
PQRS Measure Charge Sheet Comment: HISTORY OF PRESENT ILLNESS: An 83 yr old female presents today w severe and chronic neck pain > 4 yr secondary to DDD, spondylosis and facet arthropathy without myelopathy forevaluation s/p R paramedian DEVORAH C7-T1 #1. Pt states she experienced 60 % pain relief x 2 wks s/p procedure. Pt states pain level is provoked at 6 /10 in intensity, constant, localized in the cervical spine, predominantly axial, throbbing in character without shooting pain. Pain is provoked by over activity. Pain is alleviated by PT x 6 wks which ended in 2022, physician guided home exercises/ stretches daily since Jan 2023 including bike riding 10- 15 min daily, heat, medications, use of a cane and soft C-collar, repositioning and rest . Cervical disability score at 35. Interventional procedures include DEVORAH C7-T1 x1 Medications include Duloxetine REVIEW OF ORGAN SYSTEMS: CONSTITUTIONAL: No fevers or chills. No recent weight loss. NEUROLOGICAL: + numbness and tingling along the distal extremities. No seizure disorders or headaches. MUSCULOSKELETAL: + pain PSYCHIATRIC: Denies current depression or suicidal thoughts. Physical Examinations : Constitutional : Cooperative , not in acute distress . Neurologic : Cranial nerve II to XII intact. No focal neurological deficits. Psychiatric : alert & oriented x 3. Matching mood & appropriate affect. Judgment & insight intact. Musculoskeletal : Cervical Spine Motor strength in the deltoid and biceps: Normal right side. Normal Left side Motor strength biceps and the wrist extensors: Normal right side . Normal left side Motor strength in the triceps muscle: Normal right side. Normal left side Deep tendon reflexes: Normal at the biceps. Normal at Brachioradialis. Normal at triceps Vertebral body tenderness to deep palpation over C7 Cervical facet loading test: positive bilaterally Spurling test: positive bilaterally Neck distraction test: positive bilaterally R> L C7-T1 Yajaira sign: positive bilaterally Lumbar spine Motor strength lower extremities ,thigh and legs 5/5 Right side , 5/5 Left side Deep tendon reflexes : Normal Knee Jerk. Normal Ankle Jerk Vertebral body tenderness over Zaidi Test positive Lumbar facet Loading Test: positive Right / positive Left Range of motion of the lumbar spine Flexion 30 degrees, extension 10 degrees Straight Leg Raise test: Left/ Right positive at degrees Maya test: positive right / positive left. Severe tenderness over the Sacroiliac joint on the Right / Left sides Gaenslen test: positive bilaterally Seated flexion test: positive bilaterally. Sacral spine : Severe tenderness over the Sacroiliac joint: right side / left side Range of motion: Flexion of the lumbar spine <60 degrees Range of motion: Extension of the lumbar spine <20 degrees Gaenslen's Test positive Maya test: positive right side / left side Thigh Thrust Test Sacral Thrust Test Imaging: Cervical x ray from 07/31/23 reviewed MRI non contrast of the cervical spine from 09/09/23 reviewed Assessment/ Plan : Cervical DDD Recommendation of DEVORAH C7-T1 #2 and home TENS unit. Will rewrite PT script for pt. Risks, benefits of procedure discussed and pt verbalized understanding. Protocol for discontinuation/ continuation of medications vane procedure discussed. All questions answered. I have spent greater than 30 minutes on patient care today. Dr Marshall was available by phone for the evaluation of this patient. The time was used to review the medical records including relevant urine studies and Prescription history (MAPs), review of the available imaging, evaluation and examination of the patient, coordination of care with the medical staff and if applicable referring physicians, as well as creation of the medical record - Pain Location Neck Non-Pharmacological Interventions: Exercise, Heat, Ice Pharmacological Interventions: Epidural, PRN Medication, Scheduled Medication PQRS Narrative: Smoking Status Never smoker Hx Alcohol Use (MH) No Home Medications: Ambulatory Orders Multivitamins, Thera [Multivitamin (formulary)] 1 each PO DAILY 04/19/15 Acetaminophen Tab [Tylenol] 650 mg PO Q4H PRN 07/19/23 DULoxetine HCL [Cymbalta] 30 mg PO DIRECTED PRN 07/19/23 Losartan/Hydrochlorothiazide [Losartan-Hctz 100-25 mg Tab] 1 tab PO DAILY 07/19/23 Nf-Calcium Dose Unk 1 tab PO Q30D 07/19/23 Controlled Substance Measures - Controlled Substance Measures Is patient prescribed a controlled substance at discharge?: No
== END ==
LOC: PNWHC3 13:40
PROVIDERS: ATTEND Specialist
DX: M50.33 Other cervical disc degeneration, cervicothoracic region (principal)
CPT/HCPCS: 99211

== ENCOUNTER → 2024-02-01 | Outpatient (CLI) | payer MEDICARE ==
--- NOTE | 2024-02-01 11:40 | BD ---
EXAMINATION TYPE: Axial Bone Density DATE OF EXAM: 02/01/2024 CLINICAL HISTORY: 83 years old Female. ICD-10 CODE: Z78.0 MENOPAUSAL Height: 59.5 in Weight: 132 lbs EXAM MEASUREMENTS: Bone mineral densitometry was performed using the [employer] [place] [facility]. Bone mineral density as measured about the Lumbar spine is: ----- L1-L4(G/cm2): 1.159 T Score Values are as follows: ----- L1: -0.5 ----- L2: -0.9 ----- L3: 0.4 ----- L4: 0.0 ----- L1-L4: -0.2 Z Score Values are as follows: ----- L1: 1.6 ----- L2: 1.2 ----- L3: 2.5 ----- L4: 2.1 ----- L1-L4: 1.9 Bone mineral density has: Decreased -6.1% since study of: 12/14/2021 Bone mineral density about the R hip (g/cm2): 0.651 Bone mineral density about the L hip (g/cm2): 0.710 T Score values are as follows: -----R Neck: -0.9 -----L Neck: -1.5 -----R Total: -2.8 -----L Total: -2.4 Z Score values are as follows: -----R Neck: 1.5 -----L Neck: 1.0 -----R Total: -0.4 -----L Total: 0.0 Bone mineral density has: Decreased -0.1% since study of: 12/14/2021 FRAX%s: The graph provided illustrates a 17.8% chance for a major osteoporotic fx and a 5.2% chance f or the hips probability for fx in 10 years time. IMPRESSION: Osteoporosis (T Score less than -2.5). There is increased fracture risk and therapy is usually indicated based on age. Re-Screen 1-2 years. NOTE: T-SCORE=SD OF THE YOUNG ADULT MEAN. [facility], , 02/01/2024 11:38 AM
--- NOTE | 2024-02-04 14:29 | MM ---
Reason for Exam: Screening (asymptomatic). Last screening mammogram was performed 12 month(s) ago. Patient History: Menarche at age 12. First Full-Term at age 19. Hysterectomy at age 53. Postmenopausal. Other cancer, age 70. Paternal cousin had breast cancer. Risk Values: Nelida 5 year model risk: 1.0%. NCI Lifetime model risk: 1.0%. Prior Study Comparison: 03/24/2020 Bilateral Screening Mammogram, [facility]. 12/14/2021 Bilateral MG 3D screening mammo w/cad, [facility]. 01/12/2023 Bilateral MG 3D screening mammo w/cad, [facility]. Tissue Density: There are scattered areas of fibroglandular density. Findings: Analyzed By CAD. Right breast: There is no suspicious group of microcalcifications or new suspicious mass. Left breast: There is no suspicious group of microcalcifications or new suspicious mass. Overall Assessment: Negative, BI-RAD 1 Management: Screening Mammogram of both breasts in [address] [facility] will attempt to contact patient to return for supplemental views and ultrasound if indicated. Patient should continue monthly self-breast exams. A clinical breast exam by your physician is recommended on an annual basis. This exam should not preclude additional follow-up of suspicious palpable abnormalities. Note on Nelida scores and lifetime risk: 1. A Nelida score greater than 3% is considered moderate risk. If this is the case, consider specialist referral to assess eligibility for a risk reducing agent. 2. If overall lifetime risk for the development of breast cancer is 20% or higher, the patient may qualify for future screening with alternating mammogram and breast MRI. [facility], , 02/04/2024 2:26 PM. Electronically signed and approved by: Marty Antoine DO
== END | disposition home or self-care (01) ==
LOC: RADBDWWP 10:48
PROVIDERS: ATTEND Family Medicine
CPT/HCPCS: 77063; 77067; 77080

== ENCOUNTER → 2024-02-14 | Outpatient (CLI) | payer MEDICARE ==
[2024-02-14 10:27] VITALS: BP 118/81; PULSE 67; RESP 16
--- NOTE | 2024-02-14 14:55 | P.PAINPG ---
Objective - Vital Signs Vital signs: Vital Signs Temp Pulse 67 02/14/24 10:24 Resp 16 02/14/24 10:24 BP 118/81 02/14/24 10:24 Pulse Ox 97 02/14/24 10:24 FiO2 Intake & Output 02/13/24 02/14/24 02/14/24 18:59 06:59 18:59 Weight 59.421 kg PQRS Measure Charge Sheet Mode of Arrival: Ambulatory Comment: HISTORY OF PRESENT ILLNESS: An 83 yr old female presents today w severe and chronic neck pain > 4 yr secondary to radiculopathy, spondylosis and facet arthropathy without myelopathy, BL Shoulder DJD for evaluation. Pt states pain level is provoked at 4-6 /10 in intensity, constant, localized in the cervical spine, predominantly axial, throbbing in character w occasional shooting pain to the RUE. Pain is provoked by over activity. Pain is alleviated by PT x 6 wks which ended in 2022, physician guided home exercises/ stretches daily since Jan 2023 including bike riding 10-15 min daily, heat, medications, topical, use of a TENS unit, use of a cane and soft C-collar, repositioning and rest. Interventional procedures include DEVORAH C6-C7 x1, C7-T1 x1 Medications include Duloxetine, Diclofenac Gel REVIEW OF ORGAN SYSTEMS: CONSTITUTIONAL: No fevers or chills. No recent weight loss. NEUROLOGICAL: + numbness and tingling along the distal extremities. No seizure disorders or headaches. MUSCULOSKELETAL: + pain PSYCHIATRIC: Denies current depression or suicidal thoughts. Physical Examinations : Constitutional : Cooperative , not in acute distress . +Limited internal/ external rotation Neurologic : Cranial nerve II to XII intact. No focal neurological deficits. Psychiatric : alert & oriented x 3. Matching mood & appropriate affect. Judgment & insight intact. Musculoskeletal : Cervical Spine Motor strength in the deltoid and biceps: Normal right side. Normal Left side Motor strength biceps and the wrist extensors: Normal right side . Normal left side Motor strength in the triceps muscle: Normal right side. Normal left side Deep tendon reflexes: Normal at the biceps. Normal at Brachioradialis. Normal at triceps Vertebral body tenderness to deep pal pation over C7 Cervical facet loading test: positive bilaterally Spurling test: positive bilaterally Neck distraction test: positive bilaterally R> L C7-T1 Yajaira sign: positive bilaterally Lumbar spine Motor strength lower extremities ,thigh and legs 5/5 Right side , 5/5 Left side Deep tendon reflexes : Normal Knee Jerk. Normal Ankle Jerk Vertebral body tenderness over Zaidi Test positive Lumbar facet Loading Test: positive Right / positive Left Range of motion of the lumbar spine Flexion 30 degrees, extension 10 degrees Straight Leg Raise test: Left/ Right positive at degrees Maya test: positive right / positive left. Severe tenderness over the Sacroiliac joint on the Right / Left sides Gaenslen test: positive bilaterally Seated flexion test: positive bilaterally. Sacral spine : Severe tenderness over the Sacroiliac joint: right side / left side Range of motion: Flexion of the lumbar spine <60 degrees Range of motion: Extension of the lumbar spine <20 degrees Gaenslen's Test positive Maya test: positive right side / left side Thigh Thrust Test Sacral Thrust Test Imaging: Cervical x ray from 07/31/23 reviewed MRI non contrast of the cervical spine from 09/09/23 reviewed Assessment/ Plan : Cervical radiculopathy, BL Shoulder DJD Recommendation of Diclofenac Gel use and continued use of home TENS unit. PT x 6 wks M54.12, M19.019 provided. All questions answered. I have spent greater than 30 minutes on patient care today. Dr Marshall was available by phone for the evaluation of this patient. The time was used to review the medical records including relevant urine studies and Prescription history (MAPs), review of the available imaging, evaluation and examination of the patient, coordination of care with the medical staff and if applicable referring physicians, as well as creation of the medical record - Pain Location Neck Pharmacological Interventions: Epidural, Scheduled Medication, Topical Medication PQRS Narrative: Smoking Status Never smoker Blood Pressure 118/81 Pain Intensity [Neck] 4 Scale Used Numeric (1 - 10) Hx Alcohol Use (MH) No Home Medications: Ambulatory Orders Multivitamins, Thera [Multivitamin (formulary)] 1 each PO DAILY 04/19/15 Acetaminophen Tab [Tylenol] 650 mg PO Q4H PRN 07/19/23 DULoxetine HCL [Cymbalta] 30 mg PO DIRECTED PRN 07/19/23 Losartan/Hydrochlorothiazide [Losartan-Hctz 100-25 mg Tab] 1 tab PO DAILY 07/19/23 Nf-Calcium Dose Unk 1 tab PO Q30D 07/19/23 Diclofenac Sodium Gel [Voltaren 1% Gel] 50 gm TOPICAL BID 30 Days #1 each 02/14/24 Controlled Substance Measures - Controlled Substance Measures Is patient prescribed a controlled substance at discharge?: No
== END ==
LOC: PNWHC3 10:12
PROVIDERS: ATTEND Specialist
DX: M54.12 Radiculopathy, cervical region (principal); M17.0 Bilateral primary osteoarthritis of knee
CPT/HCPCS: 99211

== ENCOUNTER → 2024-03-03 | Outpatient (CLI) | payer MEDICARE ==
[2024-03-03 13:27] VITALS: BP 124/59; PULSE 64; RESP 16
--- NOTE | 2024-03-03 16:50 | P.PAINPG ---
Objective - Vital Signs Vital signs: Intake & Output 03/02/24 03/03/24 03/03/24 18:59 06:59 18:59 Weight 74.389 kg PQRS Measure Charge Sheet Comment: HISTORY OF PRESENT ILLNESS: An 83 yr old female presents today w severe and chronic neck pain > 4 yr secondary to radiculopathy, spondylosis and facet arthropathy without myelopathy, BL Shoulder DJD for evaluation. Pt states pain level is provoked at 4-6 /10 in intensity, constant, localized in the cervical spine, predominantly axial, throbbing in character w occasional shooting pain to the RUE. Pain is provoked by over activity. Pain is alleviated by PT x 6 wks which ended in 2022, physician guided home exercises/ stretches daily since Jan 2023 including bike riding 10-15 min daily, heat, medications, topical, use of a TENS unit, use of a cane and soft C-collar, repositioning and rest. She will start PT x 6 wks for neck and shoulders this week Interventional procedures include EDVORAH C6-C7 x1, C7-T1 x1 Medications include Duloxetine, Diclofenac Gel REVIEW OF ORGAN SYSTEMS: CONSTITUTIONAL: No fevers or chills. No recent weight loss. NEUROLOGICAL: + numbness and tingling along the distal extremities. No seizure disorders or headaches. MUSCULOSKELETAL: + pain PSYCHIATRIC: Denies current depression or suicidal thoughts. Physical Examinations : Constitutional : Cooperative , not in acute distress . +Limited internal/ external rotation Neurologic : Cranial nerve II to XII intact. No focal neurological deficits. Psychiatric : alert & oriented x 3. Matching mood & appropriate affect. Judgment & insight intact. Musculoskeletal : Cervical Spine Motor strength in the deltoid and biceps: Normal right side. Normal Left side Motor strength biceps and the wrist extensors: Normal right side . Normal left side Motor strength in the triceps muscle: Normal right side. Normal left side Deep tendon reflexes: Normal at the biceps. Normal at Brachioradialis. Normal at triceps Vertebral body tenderness to deep palpation over C6 Cervical facet loading test: positive bilaterally Spurling test: positive bilaterally Neck distraction test: positive bilaterally R> L C6-C7 Yajaira sign: positive bilaterally Lumbar spine Motor strength lower extremities ,thigh and legs 5/5 Right side , 5/5 Left side Deep tendon reflexes : Normal Knee Jerk. Normal Ankle Jerk Vertebral body tenderness over Zaidi Test positive Lumbar facet Loading Test: positive Right / positive Left Range of motion of the lumbar spine Flexion 30 degrees, extension 10 degrees Straight Leg Raise test: Left/ Right positive at degrees Maya test: positive right / positive left. Severe tenderness over the Sacroiliac joint on the Right / Left sides Gaenslen test: positive bilaterally Seated flexion test: positive bilaterally. Sacral spine : Severe tenderness over the Sacroiliac joint: right side / left side Range of motion: Flexion of the lumbar spine <60 degrees Range of motion: Extension of the lumbar spine <20 degrees Gaenslen's Test positive Maya test: positive right side / left side Thigh Thrust Test Sacral Thrust Test Imaging: Cervical x ray from 07/31/23 reviewed MRI non contrast of the cervical spine from 09/09/23 reviewed Assessment/ Plan : Cervical radiculopathy, BL Shoulder DJD Recommendation of DEVORAH C6-C7 #3 and Diclofenac Gel use and continued use of home TENS unit. PT x 6 wks to start this week. All questions answered. I have spent greater than 30 minutes on patient care today. Dr Marshall was available by phone for the evaluation of this patient. The time was used to review the medical records including relevant urine studies and Prescription history (MAPs), review of the available imaging, evaluation and examination of the patient, coordination of care with the medical staff and if applicable referring physicians, as well as creation of the medical record PQRS Narrative: Smoking Status Never smoker Hx Alcohol Use (MH) No Home Medications: Ambulatory Orders Multivitamins, Thera [Multivitamin (formulary)] 1 each PO DAILY 04/19/15 Acetaminophen Tab [Tylenol] 650 mg PO Q4H PRN 07/19/23 DULoxetine HCL [Cymbalta] 30 mg PO DIRECTED PRN 07/19/23 Losartan/Hydrochlorothiazide [Losartan-Hctz 100-25 mg Tab] 1 tab PO DAILY 07/19/23 Nf-Calcium Dose Unk 1 tab PO Q30D 07/19/23 Diclofenac Sodium Gel [Voltaren 1% Gel] 50 gm TOPICAL BID 30 Days #1 each 02/14/24 Controlled Substance Measures - Controlled Substance Measures Is patient prescribed a controlled substance at discharge?: No
== END ==
LOC: PNWHC3 12:52
PROVIDERS: ATTEND Specialist
DX: M54.12 Radiculopathy, cervical region (principal); M19.012 Primary osteoarthritis, left shoulder; M19.011 Primary osteoarthritis, right shoulder
CPT/HCPCS: 99211

== ENCOUNTER 2024-03-28 08:04 | Day surgery (SDC) | payer MEDICARE ==
[2024-03-20 13:10] VITALS: BMI 24.5
[2024-03-28] MEDS ORDERED: LACTATED RINGERS 1,000 ML IV SCH (08:51)
[2024-03-28 08:54] VITALS: TEMP 97
[2024-03-28] MEDS ORDERED: IOPAMIDOL M300 15ML VIAL ONE (10:12)
[2024-03-28] MEDS ORDERED: DEXAMETHASONE SOD PHOSPHATE 10 MG/ML 1 ML VIAL ONE (10:12)
--- NOTE | 2024-03-28 10:42 | P.PCN ---
Description of Procedure: PROCEDURE 1. Injection of radio contrast material into cervical epidural space, cervical epidurogram, interpretation of cervical epidurogram, Cervical epidural steroid injection under fluoroscopic guidance, C6-7 (fluoroscopy images available in the radiology department ) 2. Cervical epidurogram. PREOPERATIVE DIAGNOSIS: 1- Cervical Degenerative Disc Diseases 2- Cervical radiculopathy., 3-cervical spondylosis with cervical Facet arthropathy without myelopathy.4-cervical spinal stenosis POSTOPERATIVE DIAGNOSIS: : 1- Cervical Degenerative Disc Diseases , 2- Cervical radiculopathy. 3-,cervical spondylosis with cervical Facet arthropathy without myelopathy. 4-cervical spinal stenosis ANESTHESIA: Local anesthetics infiltration. In the OR continuous pulse ox, EKG, blood pressure and verbal communication was maintained. EBL : None PROCEDURE INDICATION: The patient with neck pain and radiculitis unresponsive to conservative treatment consents for procedure. Discussed the procedure, alternatives and possible complications which may include increased pain, infection, bleeding, nerve damage, paralysis all of which could be permanent. Patient understands and all questions were answered. PROCEDURE DESCRIPTION : After getting consent patient was taken to the OR , positioned in prone position and time out was completed. A pillow was placed under the patients chest to increase the cervical interlaminar space. The cervical area was prepped and draped in the usual sterile fashion. Using anterior-posterior fluoroscopy, interlaminar space was identified and the skin over this site was marked and then infiltrated with 1% lidocaine subcutaneously. Subsequently, a 20-gauge 3-1/2-inch Tuohy epidural needle was inserted and advanced toward the epidural space with the loss of resistance technique using a syringe filled with preservative-free normal saline and guided by AP and lateral fluoroscopy. Negative CSF, negative blood, negative paresthesia. The correct needle position in the epidural space was verified with the injection of 2 mL of the water soluble contrast dye Isovue-200 and observing an excellent epidurogram with the epidural spread of the dye, after repeat negative aspiration 3 mL solution was injected which consists of 1 mL of preservative-free normal saline mixed with 2 mL of 20 mg dexamethasone and a washout of epidurogram was seen. Needle was withdrawn intact, skin was cleansed, and bandages were applied. Disposition: Patient tolerated the procedure well. No complication. Patient was placed in supine position and transferred to the recovery room area in stable condition and there was no evidence of upper or lower extremity motor or sensory deficit after the procedure patient was discharged from recovery room after discharge criteria met and home discharge instructions was given by the staff and patient will follow with the pain clinic in 2-4 weeks
[2024-03-28 10:46] VITALS: RESP 16
[2024-03-28 10:59] VITALS: BP 144/68; PULSE 73
--- NOTE | 2024-03-28 12:25 | FL ---
EXAMINATION TYPE: FL guided pain mgmt statistic DATE OF EXAM: 03/28/2024 10:38 AM COMPARISON: Pre Operative Images if available both CT/MRI or plain film CLINICAL INDICATION: Female, 83 years old with history of Cerv Epid Inj; TECHNIQUE: FL guided pain mgmt statistic, multiple fluoroscopic images provided for procedure. Total fluoroscopy time: 39.7 seconds Total submitted images to PACS: 2 DAP: [id number] mGym2 Gycm2 uGym2 cGycm2 or equivalent. FINDINGS: Fluoroscopic images during injection for pain management demonstrate multilevel degeneration changes throughout the spine. No evidence for fracture. No acute process identified. IMPRESSION: 1. No evidence for intraoperative complication. 2. Please see the operative/procedural note for further details. [facility], , 03/28/2024 12:23 PM
== END 2024-03-28 11:08 | disposition home or self-care (01) ==
LOC: ORPAIN 08:04
PROVIDERS: ATTEND Pain Medicine Interventional Pain Medicine
DX: M47.22 Other spondylosis with radiculopathy, cervical region (principal); M48.02 Spinal stenosis, cervical region; M50.123 Cervical disc disorder at C6-C7 level with radiculopathy; Z79.1 Long term (current) use of non-steroidal anti-inflammatories (NSAID)
CPT/HCPCS: 62321; J1100; Q9967

== ENCOUNTER → 2024-04-24 | Outpatient (CLI) | payer MEDICARE ==
[2024-04-24 09:35] VITALS: BP 149/81; PULSE 64; RESP 16; TEMP 98
--- NOTE | 2024-04-24 14:29 | P.PAINPG ---
PQRS Measure Charge Sheet Comment: HISTORY OF PRESENT ILLNESS: An 83 yr old female presents today w severe and chronic neck pain > 4 yr secondary to radiculopathy, spondylosis and facet arthropathy without myelopathy, BL Shoulder DJD, BL Hip DJD for evaluation s/p DEVORAH C6-C7 #3. Pt states she experienced 50 % pain relief x 4 wks s/p procedure. Pt states pain level is provoked at 5-6 /10 in intensity, constant, localized in the R hip, predominantly axial, throbbing in character without shooting pain Pain is provoked by over activity. Pain is alleviated by PT integrated w massage x 6 wks (cerv) which ends in Apr 2024, physician guided home stretches daily since Jan 2023 including bike riding 10-15 min daily, heat, medications, topical, use of a TENS unit, use of a cane and soft C-collar, repositioning and rest. Interventional procedures include DEVORAH C6-C7 x3, C7-T1 x1 Medications include Duloxetine, Diclofenac Gel REVIEW OF ORGAN SYSTEMS: CONSTITUTIONAL: No fevers or chills. No recent weight loss. NEUROLOGICAL: + numbness and tingling along the distal extremities. No seizure disorders or headaches. MUSCULOSKELETAL: + pain PSYCHIATRIC: Denies current depression or suicidal thoughts. Physical Examinations : Constitutional : Cooperative , not in acute distress . +Limited internal/ external rotation Neurologic : Cranial nerve II to XII intact. No focal neurological deficits. Psychiatric : alert & oriented x 3. Matching mood & appropriate affect. Judgment & insight intact. Musculoskeletal : Cervical Spine Motor strength in the deltoid and biceps: Normal right side. Normal Left side Motor strength biceps and the wrist extensors: Normal right side . Normal left side Motor strength in the triceps muscle: Normal right side. Normal left side Deep tendon reflexes: Normal at the biceps. Normal at Brachioradialis. Normal at triceps Vertebral body tenderness to deep palpation over C6 Cervical facet loading test: positive bilaterally Spurling test: positive bilaterally Neck distraction test: positive bilaterally R> L C6-C7 Yajaira sign: positive bilaterally Lumbar spine +R Trendelenburg Motor strength lower extremities ,thigh and legs 5/5 Right side , 5/5 Left side Deep tendon reflexes : Normal Knee Jerk. Normal Ankle Jerk Vertebral body tenderness over Zaidi Test positive Lumbar facet Loading Test: positive Right / positive Left Range of motion of the lumbar spine Flexion 30 degrees, extension 10 degrees Straight Leg Raise test: Left/ Right positive at degrees Maya test: positive right / positive left. Severe tenderness over the Sacroiliac joint on the Right / Left sides Gaenslen test: positive bilaterally Seated flexion test: positive bilaterally. Sacral spine : Severe tenderness over the Sacroiliac joint: right side / left side Range of motion: Flexion of the lumbar spine <60 degrees Range of motion: Extension of the lumbar spine <20 degrees Gaenslen's Test positive Maya test: positive right side / left side Thigh Thrust Test Sacral Thrust Test Imaging: Cervical x ray from 07/31/23 reviewed MRI non contrast of the cervical spine from 09/09/23 reviewed Assessment/ Plan : Cervical radiculopathy, BL Shoulder DJD, R Hip DJD Recommendation of R hip x-ray, PT x 6 wks M16.10 and Diclofenac Gel use and continued use of home TENS unit. PT x 6 wks to start this week. All questions answered. I have spent greater than 30 minutes on patient care today. Dr Marshall was available by phone for the evaluation of this patient. The time was used to review the medical records including relevant urine studies and Prescription history (MAPs), review of the available imaging, evaluation and examination of the patient, coordination of care with the medical staff and if applicable referring physicians, as well as creation of the medical record PQRS Narrative: Smoking Status Never smoker Hx Alcohol Use (MH) No Home Medications: Ambulatory Orders Multivitamins, Thera [Multivitamin (formulary)] 1 each PO DAILY 04/19/15 Acetaminophen Tab [Tylenol] 650 mg PO Q4H PRN 07/19/23 DULoxetine HCL [Cymbalta] 30 mg PO DIRECTED PRN 07/19/23 Losartan/Hydrochlorothiazide [Losartan-Hctz 100-25 mg Tab] 1 tab PO DAILY 07/19/23 Nf-Calcium Dose Unk 1 tab PO Q30D 07/19/23 Diclofenac Sodium Gel [Voltaren 1% Gel] 50 gm TOPICAL BID 30 Days #1 each 03/03/24 Celecoxib [CeleBREX] 1 tab PO PRN 03/28/24 Controlled Substance Measures - Controlled Substance Measures Is patient prescribed a controlled substance at discharge?: No
== END ==
LOC: PNWHC3 09:03
PROVIDERS: ATTEND Specialist
DX: M54.12 Radiculopathy, cervical region (principal); M16.11 Unilateral primary osteoarthritis, right hip; M19.012 Primary osteoarthritis, left shoulder; M19.011 Primary osteoarthritis, right shoulder
CPT/HCPCS: 99211

== ENCOUNTER → 2024-04-25 | Outpatient (CLI) | payer MEDICARE ==
--- NOTE | 2024-04-25 11:08 | XR ---
EXAMINATION TYPE: XR Hip Complete RT DATE OF EXAM: 04/25/2024 10:48 AM COMPARISON: None CLINICAL INDICATION: Female, 83 years old with history of M16.10 UNILATERAL PRIMARY OSTEOARTHRITIS, U NSPECIF; PHH, pain TECHNIQUE: XR Hip Complete RT; Frontal and lateral views FINDINGS: No evidence for acute process, joint dislocation or significant soft tissue swelling. Osteo phyte formation of the superior acetabulum of the hip. There is severe joint space narrowing. There i s cam deformity to the femoral head. IMPRESSION: 1. No evidence for acute process. 2. Severe right hip osteoarthrosis. [facility], , 04/25/2024 11:05 AM
== END | disposition home or self-care (01) ==
LOC: RADXRMAIN 10:30
PROVIDERS: ATTEND Specialist
DX: M16.11 Unilateral primary osteoarthritis, right hip (principal)
CPT/HCPCS: 73502

== ENCOUNTER → 2024-05-12 | Outpatient (CLI) | payer MEDICARE ==
--- NOTE | 2024-05-12 13:39 | MR ---
EXAMINATION TYPE: MR hip RT wo con DATE OF EXAM: 05/12/2024 12:07 PM COMPARISON: Right hip x-ray April 25, 2024 CLINICAL INDICATION: Female, 83 years old with history of M16.10, IV Contrast: cc (None if empty) Standard multiplanar, multisequence MRI departmental protocol Multiplanar, multisequence images of the pelvis focusing on the right hip were acquired without contr ast. FINDINGS: Moderate to severe narrowing of both hip joints is present. There is small left hip joint e ffusion. There is more moderate size right-sided hip joint effusion. There is asymmetric moderate siz e right-sided head and neck collar spurring in the hip. Femoral head shapes are maintained bilaterall y. No serpiginous diminished T1 signal to suggest avascular necrosis. Tiny faint areas of signal invo lving the articular surface in the humeral head on the right are present. Left hip as asymmetric flui d in the region of the greater trochanter consistent with insertional tendinosis. Muscle bulk is main tained bilaterally. No groin hernia or adenopathy is seen. No abnormal small or large bowel dilatation. Uterus is surgically absent. No free fluid in the pelvis is seen. IMPRESSION: Advanced degenerative changes in the right hip are present as detailed above and more pro minent than opposite left hip. [facility], , 05/12/2024 1:37 PM
== END | disposition home or self-care (01) ==
LOC: RADMRIMAIN 11:03
PROVIDERS: ATTEND Specialist
DX: M16.11 Unilateral primary osteoarthritis, right hip (principal); M25.451 Effusion, right hip

== ENCOUNTER → 2024-06-05 | Outpatient (CLI) | payer MEDICARE ==
[2024-06-05 09:07] VITALS: BP 146/75; PULSE 69; RESP 19; TEMP 96.8
--- NOTE | 2024-06-05 14:54 | P.PAINPG ---
PQRS Measure Charge Sheet Comment: HISTORY OF PRESENT ILLNESS: An 83 yr old female presents today w severe and chronic neck pain > 4 yr secondary to radiculopathy, spondylosis and facet arthropathy without myelopathy, BL Shoulder DJD, BL Hip DJD for evaluation. Pt states pain level is provoked at 5-6 /10 in intensity, constant, localized in the R hip, predominantly axial, throbbing in character without shooting pain Pain is provoked by over activity. Pain is alleviated by PT integrated w massage x 6 wks (cerv) which ends in Apr 2024, physician guided home stretches daily since Jan 2023 including bike riding 10-15 min daily (cerv), physician guided home stretches daily (hip) since Feb 2024, heat, medications, topical, use of a TENS unit, use of a cane and soft C-collar, repositioning and rest. Interventional procedures include DEVORAH C6-C7 x3, C7-T1 x1 Medications include Duloxetine, Diclofenac Gel REVIEW OF ORGAN SYSTEMS: CONSTITUTIONAL: No fevers or chills. No recent weight loss. NEUROLOGICAL: + numbness and tingling along the distal extremities. No seizure disorders or headaches. MUSCULOSKELETAL: + pain PSYCHIATRIC: Denies current depression or suicidal thoughts. Physical Examinations : Constitutional : Cooperative , not in acute distress . +Limited internal/ external rotation Neurologic : Cranial nerve II to XII intact. No focal neurological deficits. Psychiatric : alert & oriented x 3. Matching mood & appropriate affect. Judgment & insight intact. Musculoskeletal : Cervical Spine Motor strength in the deltoid and biceps: Normal right side. Normal Left side Motor strength biceps and the wrist extensors: Normal right side . Normal left side Motor strength in the triceps muscle: Normal right side. Normal left side Deep tendon reflexes: Normal at the biceps. Normal at Brachioradialis. Normal at triceps Vertebral body tenderness to deep palpation over C6 Cervical facet loading test: positive bilaterally Spurling test: positive bilaterally Neck distraction test: positive bilaterally R> L C6-C7 Yajaira sign: positive bilaterally Lumbar spine +R Trendelenburg Motor strength lower extremities ,thigh and legs 5/5 Right side , 5/5 Left side Deep tendon reflexes : Normal Knee Jerk. Normal Ankle Jerk Vertebral body tenderness over Zaidi Test positive Lumbar facet Loading Test: positive Right / positive Left Range of motion of the lumbar spine Flexion 30 degrees, extension 10 degrees Straight Leg Raise test: Left/ Right positive at degrees Maya test: positive right / positive left. Severe tenderness over the Sacroiliac joint on the Right / Left sides Gaenslen test: positive bilaterally Seated flexion test: positive bilaterally. Sacral spine : Severe tenderness over the Sacroiliac joint: right side / left side Range of motion: Flexion of the lumbar spine <60 degrees Range of motion: Extension of the lumbar spine <20 degrees Gaenslen's Test positive Maya test: positive right side / left side Thigh Thrust Test Sacral Thrust Test Imaging: Cervical x ray from 07/31/23 reviewed MRI non contrast of the cervical spine from 09/09/23 reviewed MRI non contrast of the R hip from 05/12/24 reviewed Assessment/ Plan : Cervical radiculopathy, BL Shoulder DJD, R Hip DJD Recommendation of medication management and R Hip injection #1. Risks, benefits of procedure discussed and patient verbalized understanding. Diclofenac Gel w 1 RF. Continued use of home TENS unit. All questions answered. I have spent greater than 30 minutes on patient care today. Dr Marshall was available by phone for the evaluation of this patient. The time was used to review the medical records including relevant urine studies and Prescription history (MAPs), review of the available imaging, evaluation and examination of the patient, coordination of care with the medical staff and if applicable referring physicians, as well as creation of the medical record - Pain Location Right Shoulder Non-Pharmacological Interventions: Heat, Standing PQRS Narrative: Smoking Status Never smoker Hx Alcohol Use (MH) Yes: rare Home Medications: Ambulatory Orders Multivitamins, Thera [Multivitamin (formulary)] 1 each PO DAILY 04/19/15 Acetaminophen Tab [Tylenol] 650 mg PO Q4H PRN 07/19/23 DULoxetine HCL [Cymbalta] 30 mg PO DIRECTED PRN 07/19/23 Losartan/Hydrochlorothiazide [Losartan-Hctz 100-25 mg Tab] 1 tab PO DAILY 07/19/23 Nf-Calcium Dose Unk 1 tab PO Q30D 07/19/23 Celecoxib [CeleBREX] 1 tab PO DAILY PRN 03/28/24 Diclofenac Sodium Gel [Voltaren 1% Gel] 50 gm TOPICAL BID 30 Days #1 each 06/05/24 Controlled Substance Measures - Controlled Substance Measures Is patient prescribed a controlled substance at discharge?: No
== END ==
LOC: PNWHC3 08:45
PROVIDERS: ATTEND Specialist
DX: M54.12 Radiculopathy, cervical region (principal); M16.11 Unilateral primary osteoarthritis, right hip; M19.011 Primary osteoarthritis, right shoulder; M19.012 Primary osteoarthritis, left shoulder
CPT/HCPCS: 99212

== ENCOUNTER 2024-07-03 09:24 | Day surgery (SDC) | payer MEDICARE ==
[2024-07-01 12:53] VITALS: BMI 25.4
[2024-07-03 09:58] VITALS: PULSE 100; RESP 16; TEMP 97.4
[2024-07-03] MEDS ORDERED: IOPAMIDOL M300 15ML VIAL ONE (10:52)
[2024-07-03] MEDS ORDERED: ROPIVACAINE 5MG/ML 20ML VIAL ONE (10:52)
[2024-07-03] MEDS ORDERED: methylPREDNISolone ACETATE 40 MG/ML 1 ML VIAL ONE (10:52)
[2024-07-03 11:13] VITALS: BP 120/84
--- NOTE | 2024-07-03 11:19 | FL ---
EXAMINATION TYPE: FL guided pain mgmt statistic Intraoperative/procedural fluoroscopic services were provided. CLINICAL INDICATION:Female, 83 years old with history of LARGE BURSA JOINT INJ.; , PHH FINDINGS: Fluoroscopic images for large bursa injection on the right. No radiographic evidence for complication . Total fluoroscopy time is 12.2 seconds. DAP: [id number] mGym2 Please see the operative/procedural note for further details. [facility], , 07/03/2024 11:16 AM
--- NOTE | 2024-07-03 11:24 | P.PCN ---
Description of Procedure: Procedure diagnosis. He had joint osteoarthritis. Postprocedure diagnosis. As above. Procedure done. Right joint injection with IV contrast, injection of local anesthetic and steroid under fluoroscopic guidance. Anesthesia. Local anesthetic infiltration in the subcutaneous tissue. Continuous pulse ox, EKG, blood pressure and verbal communication was maintained with the patient. Blood loss. None. Indication. Discussed with the patient the procedure alternatives and possible complications which may include infection bleeding nerve damage blood vessel puncture. Patient understands and all questions were answered. Procedure note. After getting consent patient in OR in supine position. Under fluoroscopic guidance, after infiltration of 5 mL of 1% lidocaine subcutaneously, a 22-gauge spinal needle was introduced under tunnel vision of the fluoroscope at the superior lateral part of the neck of the femur near the junction of the head of the femur. After needle position information with fluoroscopy, and after negative aspiration 1 cc of [id number]-300 contrast was injected which was noted to be inside the hip joint capsule. After negative aspiration 3 cc solution was injected which consists of 2 cc of 0.5% ropivacaine mixed with 1 cc of 40 mg Depo-Medrol. Spinal needle was taken out and bandage was applied. Disposition. Patient tolerated the procedure well. No complication from the procedure. Patient was discharged in stable condition from outpatient.
== END 2024-07-03 11:34 ==
LOC: ORPAIN 09:24
PROVIDERS: ATTEND Pain Medicine Interventional Pain Medicine
DX: M46.1 Sacroiliitis, not elsewhere classified (principal)
CPT/HCPCS: 20610; Q9967; J2795; J1010

== ENCOUNTER → 2024-07-28 | Outpatient (CLI) | payer MEDICARE ==
[2024-07-28 10:33] VITALS: PULSE 99; RESP 16
[2024-07-28 10:47] VITALS: BP 121/82
--- NOTE | 2024-07-28 14:30 | P.PAINPG ---
PQRS Measure Charge Sheet Comment: HISTORY OF PRESENT ILLNESS: An 83 yr old female presents today w severe and chronic neck pain > 4 yr secondary to radiculopathy, spondylosis and facet arthropathy without myelopathy, BL Shoulder DJD, BL Hip DJD for evaluation s/p R Hip injection #1. Pt states she experienced 70 % pain relief x 3-4 wks s/p procedure. Pt states pain level is provoked at 4-6 /10 in intensity, constant, localized in the cervical spine, predominantly axial, throbbing in character w occasional shooting pain towards the shoulders. Pain is provoked by over activity. Pain is alleviated by PT integrated w massage x 6 wks (cerv) which ends in Apr 2024, physician guided home stretches daily since Jan 2023 including bike riding 10-15 min daily (cerv), physician guided home stretches daily (hip) since Feb 2024, heat, medications, topical, use of a TENS unit, use of a cane and soft C-collar, repositioning and rest. Interventional procedures include DEVORAH C6-C7 x3, C7-T1 x1, R Hip x1 Medications include Duloxetine, Diclofenac Gel REVIEW OF ORGAN SYSTEMS: CONSTITUTIONAL: No fevers or chills. No recent weight loss. NEUROLOGICAL: + numbness and tingling along the distal extremities. No seizure disorders or headaches. MUSCULOSKELETAL: + pain PSYCHIATRIC: Denies current depression or suicidal thoughts. Physical Examinations : Constitutional : Cooperative , not in acute distress . +Limited internal/ external rotation Neurologic : Cranial nerve II to XII intact. No focal neurological deficits. Psychiatric : alert & oriented x 3. Matching mood & appropriate affect. Judgment & insight intact. Musculoskeletal : Cervical Spine Motor strength in the deltoid and biceps: Normal right side. Normal Left side Motor strength biceps and the wrist extensors: Normal right side . Normal left side Motor strength in the triceps muscle: Normal right side. Normal left side Deep tendon reflexes: Normal at the biceps. Normal at Brachioradialis. Normal at triceps Vertebral body tenderness to deep pal pation over C6 Cervical facet loading test: positive bilaterally Spurling test: positive bilaterally Neck distraction test: positive bilaterally R> L C6-C7 Yajaira sign: positive bilaterally Lumbar spine +R Trendelenburg Motor strength lower extremities ,thigh and legs 5/5 Right side , 5/5 Left side Deep tendon reflexes : Normal Knee Jerk. Normal Ankle Jerk Vertebral body tenderness over Zaidi Test positive Lumbar facet Loading Test: positive Right / positive Left Range of motion of the lumbar spine Flexion 30 degrees, extension 10 degrees Straight Leg Raise test: Left/ Right positive at degrees Maya test: positive right / positive left. Severe tenderness over the Sacroiliac joint on the Right / Left sides Gaenslen test: positive bilaterally Seated flexion test: positive bilaterally. Sacral spine : Severe tenderness over the Sacroiliac joint: right side / left side Range of motion: Flexion of the lumbar spine <60 degrees Range of motion: Extension of the lumbar spine <20 degrees Gaenslen's Test positive Maya test: positive right side / left side Thigh Thrust Test Sacral Thrust Test Imaging: Cervical x ray from 07/31/23 reviewed MRI non contrast of the cervical spine from 09/09/23 reviewed MRI non contrast of the R hip from 05/12/24 reviewed Assessment/ Plan : Cervical radiculopathy, BL Shoulder DJD, R Hip DJD Recommendation of medication management and DEVORAH C6-C7 #2. Risks, benefits of procedure discussed and patient verbalized understanding. Diclofenac Gel w 1 RF. Continued use of home TENS unit. All questions answered. I have spent greater than 30 minutes on patient care today. Dr Marshall was available by phone for the evaluation of this patient. The time was used to review the medical records including relevant urine studies and Prescription history (MAPs), review of the available imaging, evaluation and examination of the patient, coordination of care with the medical staff and if applicable referring physicians, as well as creation of the medical record PQRS Narrative: Smoking Status Never smoker Hx Alcohol Use (MH) Yes: rare Home Medications: Ambulatory Orders Multivitamins, Thera [Multivitamin (formulary)] 1 each PO DAILY 04/19/15 Acetaminophen Tab [Tylenol] 650 mg PO TID PRN 07/19/23 DULoxetine HCL [Cymbalta] 30 mg PO DIRECTED PRN 07/19/23 Losartan/Hydrochlorothiazide [Losartan-Hctz 100-25 mg Tab] 1 tab PO DAILY 07/19/23 Nf-Calcium Dose Unk 1 tab PO Q30D 07/19/23 Celecoxib [CeleBREX] 1 tab PO DAILY PRN 03/28/24 Diclofenac Sodium Gel [Voltaren 1% Gel] 50 gm TOPICAL BID 30 Days #1 each 06/05/24 [place]-3/Dha/Epa/Fish Oil [Fish Oil 1,000 mg Softgel] 1 each PO Q48H 07/01/24 Controlled Substance Measures - Controlled Substance Measures Is patient prescribed a controlled substance at discharge?: No
== END ==
LOC: PNWHC3 09:33
PROVIDERS: ATTEND Specialist
DX: M47.22 Other spondylosis with radiculopathy, cervical region (principal); M16.0 Bilateral primary osteoarthritis of hip; M19.012 Primary osteoarthritis, left shoulder; M19.011 Primary osteoarthritis, right shoulder
CPT/HCPCS: 99211

== ENCOUNTER 2024-09-16 13:40 | Emergency (ER) | payer MEDICARE ==
[2024-09-16 13:45] VITALS: TEMP 97.4
--- NOTE | 2024-09-16 14:28 | ED ---
General Adult HPI - General Chief complaint: Arrhythmia/Palpitations Stated complaint: Poss Afib Time Seen by Provider: 09/16/24 13:53 Source: patient, RN notes reviewed, old records reviewed Mode of arrival: wheelchair Limitations: no limitations - History of Present Illness Initial comments: 83-year-old female presenting for evaluation of new onset atrial fibrillation. Patient was here for outpatient procedure and was noted to be in atrial fibrilla tion with RVR. Patient herself has no complaints. No chest pain or dyspnea. No lower extremity pain or swelling. No fever. No vomiting. - Related Data Home Medications Medication Instructions Recorded Confirmed Acetaminophen Tab [Tylenol] 650 mg PO DAILY 07/19/23 09/16/24 Losartan/Hydrochlorothiazide 1 tab PO DAILY 07/19/23 09/16/24 [Losartan-Hctz 100-25 mg Tab] [place]-3/Dha/Epa/Fish Oil [Fish Oil 1 cap PO Q48H 07/01/24 09/16/24 1,000 mg Softgel] Calcium(Unknown Dose) 3 tab PO DAILY 09/16/24 09/16/24 Celecoxib [CeleBREX] 100 mg PO BID PRN 09/16/24 09/16/24 Diclofenac Sodium Gel [Voltaren 1% 1 applic TOPICAL BID 09/16/24 09/16/24 Gel] Ibandronate Sodium [Boniva] 150 mg PO Q30D 09/16/24 09/16/24 Omeprazole [PriLOSEC] 20 mg PO BID 09/16/24 09/16/24 Previous Rx's Medication Instructions Recorded Apixaban [Eliquis] 2.5 mg PO BID 30 Days #60 tab 09/16/24 Metoprolol Tartrate [Lopressor] 12.5 mg PO TID 30 Days #90 tab 09/16/24 Allergies Allergy/AdvReac Type Severity Reaction Status Date / Time No Known Allergies Allergy Verified 09/16/24 14:38 Review of Systems ROS Statement: Those systems with pertinent positive or pertinent negative responses have been documented in the HPI. ROS Other: All systems not noted in ROS Statement are negative. Past Medical History Past Medical History: Cancer, Hyperlipidemia, Hypertension, Osteoarthritis (OA) Additional Past Medical History / Comment(s): R hip pain, skin cancer, hiatal hernia History of Any Multi-Drug Resistant Organisms: None Reported Past Surgical History: Hysterectomy, Joint Replacement Additional Past Surgical History / Comment(s): B/L knee replacement. Pain clinic procedures Past Anesthesia/Blood Transfusion Reactions: Postoperative Nausea & Vomiting (P ONV) Additional Past Anesthesia/Blood Transfusion Reaction / Comment(s): PONV after hysterectomy "many years ago" Past Psychological History: No Psychological Hx Reported Smoking Status: Former smoker Past Alcohol Use History: Rare Past Drug Use History: None Reported - Past Family History Daughter(s) Family Medical History: Cancer Additional Family Medical History / Comment(s): brain cancer, ovarian cancer Sister(s) Family Medical History: Cancer Additional Family Medical History / Comment(s): lung x2 sisters General Exam Limitations: no limitations General appearance: alert, in no apparent distress Head exam: Present: atraumatic, normocephalic Eye exam: Present: normal appearance, PERRL ENT exam: Present: normal exam Neck exam: Present: normal inspection. Absent: tenderness, meningismus Respiratory exam: Present: normal lung sounds bilaterally. Absent: respiratory distress, wheezes Cardiovascular Exam: Present: tachycardia, irregular rhythm GI/Abdominal exam: Present: soft. Absent: distended, tenderness, guarding Extremities exam: Present: normal inspection, normal capillary refill. Absent: calf tenderness Neurological exam: Present: alert, oriented X3, CN II-XII intact. Absent: motor sensory deficit Psychiatric exam: Present: normal affect, normal mood Skin exam: Present: warm, dry, intact Course Vital Signs 09/16/24 13:42 Temperature 97.4 F L Pulse Rate 101 H Respiratory 16 Rate Blood Pressure 153/90 O2 Sat by Pulse 97 Oximetry Medical Decision Making - Medical Decision Making Was pt. sent in by a medical professional or institution (, PA, STENCIL CUTTER MACHINE, urgent care, hospital, or longterm...) When possible be specific @ -No Did you speak to anyone other than the patient for history (EMS, parent, family, police, friend...)? What history was obtained from this source @ -No Did you review nursing and triage notes (agree or disagree)? Why? @ -I reviewed and agree with nursing and triage notes Were old charts reviewed (outside hosp., previous admission, EMS record, old EKG, old radiological studies, urgent care reports/EKG's, longterm records)? Report findings @ -No old charts were reviewed Atrial fibrillation with RVR rate of 109, QRS duration 90, QTc [address] segment elevation. EKG interpreted by me (3pts min.). @ -As above X-rays interpreted by me (1pt min.). @ -None done CT interpreted by me (1pt min.). @ -None done U/S interpreted by me (1pt. min.). @ -None done What testing was considered but not performed or refused? (CT, X-rays, U/S, labs)? Why? @ -None What meds were considered but not given or refused? Why? @ -None Did you discuss the management of the patient with other professionals (professionals i.e. DrCarlie, PA, STENCIL CUTTER MACHINE, lab, RT, psych nurse, secondary social studies teacher, field operations coordinator, teacher, correctional security officer, shelter case manager)? Give summary @Dr. Arrington covering for cardiology, recommend starting Eliquis 2.5 mg twice daily and metoprolol 3 times daily. Patient should follow-up as an outpatient with Dr. Esteban. Was smoking cessation discussed for >3mins.? @ -No Was critical care preformed (if so, how long)? @ -No Were there social determinants of health that impacted care today? How? (Homelessness, low income, unemployed, alcoholism, drug addiction, transportation, low edu. Level, literacy, decrease access to med. care, retirement, rehab)? @ -No Was there de-escalation of care discussed even if they declined (Discuss DNR or withdrawal of care, Hospice)? DNR status @ -No What co-morbidities impacted this encounter? (DM, HTN, Smoking, COPD, CAD, Cancer, CVA, ARF, Chemo, Hep., AIDS, mental health diagnosis, sleep apnea, morbid obesity)? @ -[Hypertension Was patient admitted / discharged? Hospital course, mention meds given and route, prescriptions, significant lab abnormalities, going to OR and other pertinent info. @ -83-year-old female with asymptomatic new onset atrial fibrillation which is rate controlled. Laboratory testing reveals stable anemia hemoglobin of 11 otherwise unremarkable blood testing. Patient is completely asymptomatic and is eager for discharge. I did discuss case with child nutrition assistant Dr. Arrington who is agreeable with discharge with appropriate medications and outpatient follow-up. The patient will monitor her blood pressure closely return with any new or worsening symptoms. Undiagnosed new problem with uncertain prognosis? @ -No Drug Therapy requiring intensive monitoring for toxicity (Heparin, Nitro, Insulin, Cardizem)? @ -No Were any procedures done? @ -No Diagnosis/symptom? @ -New onset atrial fibrillation Acute, or Chronic, or Acute on Chronic? @ -Acute Uncomplicated (without systemic symptoms) or Complicated (systemic symptoms)? @ -Default Side effects of treatment? @ -No Exacerbation, Progression, or Severe Exacerbation? @ -No Poses a threat to life or bodily function? How? (Chest pain, [place], [place], pneumonia, PE, COPD, DKA, ARF, appy, cholecystitis, CVA, Diverticulitis, Homicidal, Suicidal, threat to staff... and all critical care pts) @ -[Low risk at this time - Lab Data Result diagrams: 09/16/24 14:00 09/16/24 14:00 Lab Results 09/16/24 09/16/24 09/16/24 Range/Units 14:00 14:00 14:00 WBC 7.14 (4.50-10.00) 10*3/uL RBC 4.21 (4.10-5.20) 10*6/uL Hgb 11.2 L (12.0-15.0) g/dL Hct 35.6 L (37.2-46.3) % MCV 84.6 (80.0-97.0) fL MCH 26.6 L (27.0-32.0) pg MCHC 31.5 L (32.0-37.0) g/dL Plt Count 298 (140-440) 10*3/uL MPV 12.1 (9.5-12.2) fL Immature Gran % (Auto) 0.4 % Neutrophils % 59.4 % Lymphocytes % 23.7 % Monocytes % 10.9 % Eosinophils % 4.5 % Basophils % 1.1 % Immature Gran # 0.03 (0.00-0.04) 10*3/uL Neutrophils # 4.24 (1.80-7.70) 10*3/uL Lymphocytes # 1.69 (0.90-5.00) 10*3/uL Monocytes # 0.78 (0.20-1.00) 10*3/uL Eosinophils # 0.32 (0.04-0.35) 10*3/uL Basophils # 0.08 (0.00-0.10) 10*3/uL PT 10.2 (10.0-12.5) sec INR 0.9 (<1.2) APTT 22.5 (22.0-30.0) sec Sodium 138 (137-145) mmol/L Potassium 4.2 (3.5-5.1) mmol/L Chloride 106 (98-107) mmol/L Carbon Dioxide 21 L (22-30) mmol/L Anion Gap 11 mmol/L BUN 31 H (7-17) mg/dL Creatinine 1.07 H (0.52-1.04) mg/dL Est GFR (CKD-EPI)AfAm 55 (>60 ml/min/1.73 sqM) Est GFR (CKD-EPI)NonAf 48 (>60 ml/min/1.73 sqM) Glucose 91 (74-99) mg/dL Calcium 9.2 (8.4-10.2) mg/dL Magnesium 2.3 (1.6-2.3) mg/dL Total Bilirubin 0.6 (0.2-1.3) mg/dL AST 20 (14-36) U/L ALT 11 (4-34) U/L Alkaline Phosphatase 68 (38-126) U/L Troponin I (0.000-0.034) ng/mL Total Protein 7.1 (6.3-8.2) g/dL Albumin 4.3 (3.5-5.0) g/dL TSH 1.030 (0.465-4.680) mIU/L 09/16/24 Range/Units 14:00 WBC (4.50-10.00) 10*3/uL RBC (4.10-5.20) 10*6/uL Hgb (12.0-15.0) g/dL Hct (37.2-46.3) % MCV (80.0-97.0) fL MCH (27.0-32.0) pg MCHC (32.0-37.0) g/dL Plt Count (140-440) 10*3/uL MPV (9.5-12.2) fL Immature Gran % (Auto) % Neutrophils % % Lymphocytes % % Monocytes % % Eosinophils % % Basophils % % Immature Gran # (0.00-0.04) 10*3/uL Neutrophils # (1.80-7.70) 10*3/uL Lymphocytes # (0.90-5.00) 10*3/uL Monocytes # (0.20-1.00) 10*3/uL Eosinophils # (0.04-0.35) 10*3/uL Basophils # (0.00-0.10) 10*3/uL PT (10.0-12.5) sec INR (<1.2) APTT (22.0-30.0) sec Sodium (137-145) mmol/L Potassium (3.5-5.1) mmol/L Chloride (98-107) mmol/L Carbon Dioxide (22-30) mmol/L Anion Gap mmol/L BUN (7-17) mg/dL Creatinine (0.52-1.04) mg/dL Est GFR (CKD-EPI)AfAm (>60 ml/min/1.73 sqM) Est GFR (CKD-EPI)NonAf (>60 ml/min/1.73 sqM) Glucose (74-99) mg/dL Calcium (8.4-10.2) mg/dL Magnesium (1.6-2.3) mg/dL Total Bilirubin (0.2-1.3) mg/dL AST (14-36) U/L ALT (4-34) U/L Alkaline Phosphatase (38-126) U/L Troponin I <0.012 (0.000-0.034) ng/mL Total Protein (6.3-8.2) g/dL Albumin (3.5-5.0) g/dL TSH (0.465-4.680) mIU/L Disposition Clinical Impression: Atrial fibrillation Disposition: HOME SELF-CARE Condition: Fair Instructions (If sedation given, give patient instructions): A-fib (Atrial Fibrillation) (ED) Additional Instructions: Please monitor your blood pressure at home. Please return with any new or worsening symptoms. Please follow closely with cardiology. Prescriptions: Apixaban [Eliquis] 2.5 mg PO BID 30 Days #60 tab Metoprolol Tartrate [Lopressor] 12.5 mg PO TID 30 Days #90 tab Is patient prescribed a controlled substance at d/c from ED?: No Referrals: Carolee Pang DO [Primary Care Provider] - 1-2 days Gallo Esteban MD [Medical Doctor] - 1-2 days Time of Disposition: 15:46
[2024-09-16 14:33] LABS: Basophils # (A) 0.08 10*3/uL (0.00-0.10); Basophils % (A) 1.1 %; Eosinophils # (A) 0.32 10*3/uL (0.04-0.35); Eosinophils % (A) 4.5 %; HCT 35.6 % (37.2-46.3); HGB 11.2 g/dL (12.0-15.0); Lymphocytes # (A) 1.69 10*3/uL (0.90-5.00); Lymphocytes % (A) 23.7 %; MCH 26.6 pg (27.0-32.0); MCHC 31.5 g/dL (32.0-37.0); MCV 84.6 fL (80.0-97.0); Mean Platelet Volume 12.1 fL (9.5-12.2); Monocytes # (A) 0.78 10*3/uL (0.20-1.00); Monocytes % (A) 10.9 %; Neutrophils # (A) 4.24 10*3/uL (1.80-7.70); Neutrophils % (A) 59.4 %; Platelet Count 298 10*3/uL (140-440); RBC 4.21 10*6/uL (4.10-5.20); RDW 15.2 % (11.5-14.5); WBC 7.14 10*3/uL (4.50-10.00)
[2024-09-16 14:46] LABS: INR 0.9 (<1.2); Partial Thromboplastin Time 22.5 sec (22.0-30.0); Prothrombin Time 10.2 sec (10.0-12.5)
[2024-09-16 14:53] LABS: ALT 11 U/L (4-34); AST 20 U/L (14-36); African American GFR (CKD) 55 (>60 ml/min/1.73 sqM); Albumin 4.3 g/dL (3.5-5.0); Alkaline Phosphatase 68 U/L (38-126); Anion Gap 11 mmol/L; Blood Urea Nitrogen 31 mg/dL (7-17); Calcium 9.2 mg/dL (8.4-10.2); Carbon Dioxide 21 mmol/L (22-30); Chloride 106 mmol/L (98-107); Glucose 91 mg/dL (74-99); Magnesium 2.3 mg/dL (1.6-2.3); Non-African American GFR(CKD) 48 (>60 ml/min/1.73 sqM); Potassium 4.2 mmol/L (3.5-5.1); Sodium 138 mmol/L (137-145); Total Bilirubin 0.6 mg/dL (0.2-1.3); Total Protein 7.1 g/dL (6.3-8.2)
[2024-09-16 15:49] VITALS: RESP 18
[2024-09-16 17:02] VITALS: BP 142/88; PULSE 107
== END 2024-09-16 16:59 | disposition home or self-care (01) ==
LOC: EC 13:40
DX: I48.91 Unspecified atrial fibrillation (principal); I10 Essential (primary) hypertension; Z87.891 Personal history of nicotine dependence
CPT/HCPCS: 36415; 80053; 83735; 84443; 84484; 85025; 85610; 85730; 93005; 99285

== ENCOUNTER → 2024-09-16 | Day surgery (SDC) | payer MEDICARE ==
[2024-09-15 12:13] VITALS: BMI 25.4
[2024-09-16 12:22] VITALS: BP 134/84; PULSE 105; RESP 16; TEMP 97.8
== END ==
LOC: ORPAIN 11:49
PROVIDERS: ATTEND Pain Medicine Interventional Pain Medicine
DX: Z53.8 Procedure and treatment not carried out for other reasons (principal); M54.12 Radiculopathy, cervical region